=== PATIENT | male | born 1955 | race Caucasian/White ===

== ENCOUNTER 2019-04-01 22:00 | IRF | payer OTHER, SELFPAY ==
--- NOTE | ~2019-04-01 | XR_ITS ---
EXAMINATION: XR chest PICC line DATE: 04/02/2019 00:48 INDICATION: Central line placement. TECHNIQUE: A single frontal view of the chest was obtained. COMPARISON: None. FINDINGS: Right lateral costophrenic angle is excluded. There is mild atelectasis in left lower lung zone. No pleural effusion or pneumothorax. The heart size is normal. A right upper extremity peripher ally inserted central venous catheter (PICC) is seen with tip in the right atrium. Radiopaque densiti es overlie left upper quadrant that may be foreign bodies. IMPRESSION: 1. PICC tip in right atrium. 2. Mild atelectasis in left lower lung zone. Reviewed, dictated and finalized at location A. GAGE COORDINATOR
[2019-04-01 22:00] VITALS: BP 137/58; PULSE 64; RESP 20; TEMP 36.4; O2SAT 98
--- NOTE | 2019-04-01 22:16 | ADMGEN ---
This patient, Ritesh Dee, was admitted to [facility] Room 220-02. Patient/family oriented to hospital policies and general routines including ID bracelet, bed and alarms, visiting hours, pain management, procedures, bathroom and other care routines, personal items, smoking policy, room service/diet, and visiting hours. Valuables list has been completed. Information on how to activate the Rapid Response Team has been discussed. Patient/Family are encouraged to report perceived risks to care and to ask questions if they do not understand what they are told or what they should do.
[2019-04-01 22:41] VITALS: BMI 45.5
[2019-04-02] MEDS: ENOXAPARIN 40 MG/0.4 ML SYRINGE SUB-Q ×3 (00:37→20:22)
[2019-04-02 06:00] VITALS: BP 142/60; PULSE 67; RESP 20; TEMP 36.6; O2SAT 99
[2019-04-02 06:11] LABS: Basophils Absolute Auto 0.1 K/mm3 (0.0-0.1); Basophils Percent Auto 0.8 % (0.2-1.2); Eosinophils Absolute Auto 0.2 K/mm3 (0-0.3); Hematocrit 28.7 % (42.0-52.0); Hemoglobin 8.8 g/dL (14.0-18.0); Immature Granulocyte Absolute 0.07 K/mm3 (0.00-0.031); Immature Granulocyte Percent A 0.7 % (0-0.5); Lymphocytes Absolute Auto 2.22 K/mm3 (0.9-3.2); Lymphocytes Percent Auto 23.3 % (18.3-44.2); Mean Corpuscular HGB Conc 30.7 g/dl (32-36); Mean Corpuscular Hemoglobin 26.6 pg (26-34); Mean Corpuscular Volume 86.7 fl (80-100); Monocytes Absolute Auto 1.1 K/mm3 (0.1-0.6); Monocytes Percent Auto 11.3 % (2.6-8.5); Neutrophils Absolute Auto 5.9 K/mm3 (1.3-6.7); Neutrophils Percent Auto 61.9 % (45.5-73.1); Platelet Count Result 359 k/mm3 (150-375); Red Blood Count 3.31 M/mm3 (4.6-6.20); White Blood Count 9.5 K/mm3 (4.5-10.0)
[2019-04-02 06:27] LABS: Blood Urea Nitrogen 16 mg/dL (9-20); Calcium 8.4 mg/dL (8.4-10.2); Carbon Dioxide 26 mmol/L (22-30); Chloride 100 mmol/L (98-107); Estimated CRCL calculation 106 ml/min; Estimated Glomerular Filt Rate > 60; Glucose 86 mg/dL (75-110); Potassium 4.4 mmol/L (3.4-5.0); Sodium 136 mmol/L (137-145)
[2019-04-02 08:00] VITALS: PULSE 67; RESP 20; O2SAT 99
--- NOTE | 2019-04-02 09:30 | WPDREHABHP ---
H&P: HPI History of Present Illness Chief complaint: left foot non healing diabetic ulceration Narrative: Ritesh Dee is a 64 year old maleHISTORY OF PRESENT ILLNESS: The patient's primary rehab impairment category is 58-yqpargjztg-xnley extremity The etiologic diagnosis is diabetic left nonhealing foot ulceration followed by ekhxz-uby-mudn amputation I saw this patient [id number] on April 02, 2019 at 9:30 a.m. The patient is a 64-year-old right-handed white male with a past medical history of coronary artery disease status post 3 stents, type 2 diabetes mellitus, obstructive sleep apnea, prior stroke with some residual weakness of the dexterity dexterity of the right hand, hyperlipidemia, morbid obesity, and hypertension who presented to [facility] on March 16, 2019 with complaints of worsening infection in an ulcer on his left foot. The wound has been present for about a month and started out as a small cut. The wound was cultured and debrided in the Wound Care office but it continued to get worse. He was admitted on March 16, 2019 with sepsis and was started on vancomycin and cefepime and Flagyl. The culture grew Enterococcus, Enterobacter clock a and E coli and his antibiotic regimen was changed to clindamycin ampicillin and cefepime then sensitivities returned. to the patient to the OR on March 18, 2019 for further debridement and wound VAC placement. His white count started to trend down but he continued to have pain and significant drainage from the wound. He was then transferred to [facility] in [facility] on March 24, 2019 for infectious disease and vascular consult patient's. ALFONSO were abnormal on the left and the patient was scheduled for left [id number] amputation in March 26, 2019 with vascular surgery. Infectious disease recommended continue treatment with IV Rocephin for 3 weeks last day would be April 22, 2019. patient has a PICC line in place at the right upper extremity. This hospitalization has been significant for acute postoperative pain, edema and acute kidney injury. His postoperative pain is being managed with oral medications now edema is chronic and is being managed by avoiding excess IV fluids and diuresis, acute kidney injury is resolving with the current creatinine at baseline of 1.3 Therapy was initiated at the acute care facility and the patient transferred to us from [facility] on April 01, 2019 FALLS OR SURGERIES: The patient has had major surgeries in the 100 days prior to admission. They had no falls in the past year. They had no falls with injury in the past year. PAST MEDICAL HISTORY: benign essential hypertension, benign prostatic hypertrophy, coronary artery disease status post stenting, cataracts, cellulitis of the left lower extremity, cerebral infarction in 2010 with residual right hand weakness chronic calf ulcer chronic venous insufficiency diabetes mellitus right arm hemiparesis hyperlipidemia obstructive sleep apnea osteoarthritis osteoarthrosis, peripheral nerve disease, right-sided muscle weakness. PAST SURGICAL HISTORY: Cardiac stents, bilateral cataract extraction, insulin infusion pump insertion, hernia repair, knee surgery, rigid nasal fiberoptic endoscopy, stress test, right total hip arthroplasty Prieb add SOCIAL HISTORY: the patient lives with a roommate in a 2 level home with 4 steps to enter. He is able to live on the [place] level with the bedroom/ bathroom available there. He was completely independent with ADLs and IADLs less function transfers ambulation and driving prior to this. He did not use an assistive device. He was able to ambulate short community distances and worked as a chef de cuisine. He reported no falls prior and had major surgery this hospitalization of course. FAMILY HISTORY: Father had lung cancer, brain cancer. Maternal grandmother with diabetes and stroke. Maternal grandfather for t
[2019-04-02 10:05] VITALS: TEMP 36.6
[2019-04-02] MEDS: metFORMIN HCL 500 MG TABLET 1000 MG PO (10:15)
[2019-04-02] MEDS: DOCUSATE SODIUM 100 MG CAPSULE PO ×2 (10:15→17:47)
[2019-04-02] MEDS: FLUTICASONE PROPIONATE 0.05% NA SPR 16 GM BTL (*BKC) 2 SPRAY NASAL (10:16)
[2019-04-02] MEDS: CLOPIDOGREL BISULFATE 75 MG TABLET PO (10:16)
[2019-04-02] MEDS: lisinopriL 10 MG TABLET PO (10:16)
[2019-04-02] MEDS: PANTOPRAZOLE 40 MG TABLET BY MOUTH (10:16)
[2019-04-02] MEDS: GABAPENTIN 100 MG CAPSULE PO ×3 (10:16→17:47)
[2019-04-02] MEDS: PANTOPRAZOLE SOD SESQUIHYDRATE 20 MG TAB PO (10:17)
[2019-04-02] MEDS: NAPROXEN 500 MG TABLET BY MOUTH (10:17)
[2019-04-02] MEDS: ACIDOPHILUS/BULGARICUS CHEWABLE TABLET 1 TABLET PO (10:17)
[2019-04-02] MEDS: EUCERIN CREAM 120 GM JAR 1 APPLIC TOPICAL (12:54)
[2019-04-02 13:58] VITALS: TEMP 36.6
[2019-04-02 14:57] VITALS: BMI 45.5
[2019-04-02 15:20] VITALS: BP 125/47; PULSE 76; RESP 16; TEMP 36; O2SAT 99
--- NOTE | 2019-04-02 15:58 | PCNSR ---
On 04/02/19, the student, Dana Rosenbaum, provided care and completed [facility] documentation on this patient. I have reviewed the student's documentation and agree with the findings.
--- NOTE | 2019-04-02 16:49 | RPD ---
INDIVIDUALIZED PLAN OF CARE FOR Ritesh Dee Brief Synthesis of Pre-Admission Screen, Post-Admission Evaluation and Therapy Evaluations: The patient presents to rehab with diabetic non-healing foot ulceration. Comorbidities include Status post left below the knee amputation, peripheral vascular disease, hypertension, hyperlipidemia, benign prostatic hyperplasia, lower extremity edema, coronary artery disease, diabetes mellitus, gastroesophageal reflux disease, obstructive sleep apnea, osteoathrosis, peripheral nerve disease, right-sided muscle weakness, sepsis, acute on chronic kidney disease, chronic rhinitis, morbid obesity. The patient requires physician services for medical oversight, management of post-op complications in the setting of present comorbidities, management of diabetes mellitus, hypertension, kidney disease, and pain management. Post-op complications have included lower extremity edema, postoperative pain, acute kidney injury, and infectious process. The patient requires nursing services for anticoagulation therapy, diabetes training, DVT prophylactics, IV administration, infection protection, medication management and education, pressure relief, and wound care. Deficits include:ADLs, Balance, Endurance, Mobility, Pain Management, ROM, Safety, Strength,Transfers Licensed Final Expense Agents/Case Management for: Discharge Planning and Patient/Family Counseling Physical Therapy: 5 days per week for 90 minutes. Treatments may include: Therapeutic Exercise, Gait Training, Neuromuscular Re-education, Transfer Training, Community Reintegration, Bed Mobility, Patient/Family Education, Wheelchair Mobility Group Therapy/Concurrent Therapy Rationales: -Improve attention span during functional activities in a distracted environment. -Enhance problem solving and/or adequate judgment skills during functional activities in a distracted environment. -Promote increased safety awareness in a distracted environment to reduce fall risk with functional tasks, transfers, and ambulation to allow a more safe, self-sufficient return to the home environment. -Improve dynamic balance skills to promote safety and independence with functional activities in a distracted environment for maximum gain. Occupational Therapy: 5 days per week for 90 minutes. Treatments may include: Therapeutic Exercise, Therapeutic Activity, Cognitive Training, Self-Care Transfer Training, Community Reintegration, Home Management, Patient/Family Education, Wheelchair Mobility Training, Energy Conservation Training Group Therapy/Concurrent Therapy Rationales: -Allow therapist to observe and teach generalization and carry-over of skills learned in individual therapy. -Enhance problem solving and sequencing skills during therapeutic activities in a distracted environment. -Promote increased safety awareness in a realistic setting to reduce fall risk with functional tasks due to visual and verbal distractions. -Increase functional level with ADLs, ADL transfers and use of adaptive equipment through therapeutic activities with others while promoting safety to allow a more safe, self-sufficient return home. Medical Prognosis: Good Anticipated Length of Stay: 10 days Rehab Goals: Eating Goal: 06-Independent Oral Hygiene Goal: 06-Independent Toileting Hygiene Goal: 06-Independent Shower/Bathe Self Goal: 06-Independent Upper Body Dressing Goal: 06-Independent Lower Body Dressing Goal: 06-Independent Putting On/Taking Off Footwear Goal: 06-Independent Rolling Left and Right Goal: 06-Independent Sit to Lying Goal: 06-Independent Lying to Sitting on Side of Bed Goal: 06-Independent Sit to Stand Goal: 06-Independent Chair/Guh-pk-Yzwff Transfer Goal: 06-Independent Toilet Transfer Goal: 06-Independent Car Transfer Goal: 05-Setup or Clean Up Assistance Walk 10' Goal: 03-Partial/Moderate Assistance Walk 50' with Two Turns Goal: 09-Not Applicable Walk 150' Goal: 09-Not Applicable Walk 10' on Uneven Surface
[2019-04-02 17:21] LABS: Glucose Point of Care 49 (65-105)
[2019-04-02 22:00] VITALS: BP 119/53; PULSE 69; RESP 20; TEMP 36.6; O2SAT 97
[2019-04-03 06:00] VITALS: BP 138/58; PULSE 64; RESP 18; TEMP 36.5; O2SAT 98
[2019-04-03] MEDS: ENOXAPARIN 40 MG/0.4 ML SYRINGE SUB-Q ×2 (09:34→20:11)
[2019-04-03] MEDS: GABAPENTIN 100 MG CAPSULE PO ×3 (09:34→16:48)
[2019-04-03] MEDS: metFORMIN HCL 500 MG TABLET 1000 MG PO (09:34)
[2019-04-03] MEDS: CLOPIDOGREL BISULFATE 75 MG TABLET PO (09:35)
[2019-04-03] MEDS: ACIDOPHILUS/BULGARICUS CHEWABLE TABLET 1 TABLET PO (09:35)
[2019-04-03] MEDS: FLUTICASONE PROPIONATE 0.05% NA SPR 16 GM BTL (*BKC) 2 SPRAY NASAL (09:35)
[2019-04-03] MEDS: lisinopriL 10 MG TABLET PO (09:35)
[2019-04-03] MEDS: PANTOPRAZOLE SOD SESQUIHYDRATE 20 MG TAB PO (09:35)
[2019-04-03] MEDS: PANTOPRAZOLE 40 MG TABLET BY MOUTH (09:35)
[2019-04-03] MEDS: NAPROXEN 500 MG TABLET BY MOUTH (09:35)
[2019-04-03] MEDS: DOCUSATE SODIUM 100 MG CAPSULE PO ×2 (09:35→16:48)
[2019-04-03] MEDS: EUCERIN CREAM 120 GM JAR 1 APPLIC TOPICAL (09:40)
[2019-04-03 11:52] LABS: Glucose Point of Care 172 (65-105)
[2019-04-03 14:00] VITALS: BP 129/56; PULSE 74; RESP 20; TEMP 36.3; O2SAT 99
[2019-04-03 17:25] LABS: Glucose Point of Care 47 (65-105)
[2019-04-03 22:00] VITALS: BP 157/61; PULSE 72; RESP 18; TEMP 36.2; O2SAT 100
[2019-04-04 06:00] VITALS: BP 152/62; PULSE 65; RESP 18; TEMP 36.2; O2SAT 98
[2019-04-04 08:30] VITALS: BP 117/51; PULSE 71
[2019-04-04] MEDS: GABAPENTIN 100 MG CAPSULE PO ×3 (08:45→17:08)
[2019-04-04] MEDS: CLOPIDOGREL BISULFATE 75 MG TABLET PO (08:45)
[2019-04-04] MEDS: PANTOPRAZOLE 40 MG TABLET BY MOUTH (08:45)
[2019-04-04] MEDS: ACIDOPHILUS/BULGARICUS CHEWABLE TABLET 1 TABLET PO (08:45)
[2019-04-04] MEDS: metFORMIN HCL 500 MG TABLET 1000 MG PO (08:45)
[2019-04-04] MEDS: NAPROXEN 500 MG TABLET BY MOUTH (08:46)
[2019-04-04] MEDS: lisinopriL 10 MG TABLET PO (08:46)
[2019-04-04] MEDS: PANTOPRAZOLE SOD SESQUIHYDRATE 20 MG TAB PO (08:46)
[2019-04-04] MEDS: DOCUSATE SODIUM 100 MG CAPSULE PO ×2 (08:46→17:08)
[2019-04-04] MEDS: ENOXAPARIN 40 MG/0.4 ML SYRINGE SUB-Q ×2 (08:49→20:22)
--- NOTE | 2019-04-04 13:54 | WPDNEURORHBP ---
Subjective Date/time seen: 04/04/19 13:54 Interval history: this patient is here after having had a left BKA the to diabetic neuropathy peripheral vascular disease and complaining of phantom pain in the leg he is receiving IV antibiotics He denies any headache chest pain shortness of breath Review of Systems Constitutional: Constitutional: Reports no additional constitutional complaints Eyes: Eyes: Reports no additional eye complaints ENT: Reports system reviewed and no additional complaints, except as documented Cardiovascular: Cardiovascular: Reports no additional cardiovascular complaints Respiratory: Respiratory: Reports no additional respiratory complaints Gastrointestinal: Gastrointestinal: Reports no additional gastrointestinal complaints Genitourinary: Genitourinary: Reports no additional male genitourinary complaints Musculoskeletal: Musculoskeletal: Reports no additional musculoskeletal complaints Integumentary/Breasts: Skin/Breast: Reports system reviewed and no additional complaints, except as docu Neurologic: Reports system reviewed and no additional complaints, except as documented Psychiatric: Psychiatric: Reports no additional psychiatric complaints Functional Status Transfers Ability Ability to Transfer In/Out of Chair: Maximum Assistance X 1 Exam Const: General: no acute distress and uncomfortable Other: phantom pain is bothering him HENMT: General nose exam: Normal nares present Mouth: Yes moist mucous membranes Eyes: General: appearance normal, both eyes and all related structures Neck: Neck: supple and no JVD Resp: Effort & Inspection: normal respiratory effort Auscultation: clear to auscultation bilaterally Cardio: Rate: regular rate Rhythm: regular rhythm GI: GI Palp: Yes Soft to palpation Auscultation: normal bowel sounds Skin: General skin exam: normal color and no rashes or lesions noted Neuro: Other: patient has had generalized weakness of both upper lower extremities along with the evidence of peripheral neuropathy and peripheral vascular disease Extrem: Other: this is a little drainage at the site of the amputation and dark skin edges where the sutures are we need to watch it carefully for any wound dehiscence or any sign of infection which he does not have at this time Psych: Mental Status: mental status grossly normal Objective Data Vital Signs Vital Signs: Vital Signs - 24 hr 04/03/19 14:00 04/03/19 22:00 04/04/19 06:00 Temperature 36.3 C L 36.2 C L 36.2 C L Pulse Rate 74 72 65 Respiratory Rate 20 18 18 Blood Pressure 129/56 L 157/61 H 152/62 H Pulse Oximetry 99 100 98 04/04/19 08:30 Temperature Pulse Rate 71 Respiratory Rate Blood Pressure 117/51 L Pulse Oximetry Intake/Output Intake/Output: Intake & Output 04/01/19 04/02/19 04/03/19 04/04/19 23:59 23:59 23:59 23:59 Intake Total 240 1250 770 Balance 240 1250 770 Meds/Results Medications: Active Medications Generic Name Dose Route Start Last Admin Trade Name Freq PRN Reason Stop Dose Admin Albuterol 2.5 mg 04/01/19 23:45 Albuterol Sulf Neb 2.5mg/0.5ml INHALATION Q4HRT PRN Shortness Of Breath Alteplase, Recombinant 2 mg 04/04/19 13:46 Cathflo Activase IV PUSH ONCE PRN Line Occlusion Alteplase, Recombinant 2 mg 04/04/19 13:49 Cathflo Activase IV PUSH ONCE PRN Line Occlusion Benzonatate 100 mg 04/01/19 23:13 Tessalon Perles PO TID PRN Cough Clopidogrel Bisulfate 75 mg 04/02/19 09:00 04/04/19 08:45 Plavix PO 75 mg DAILY JOSE A Administration Diphenhydramine HCl 25 mg 04/01/19 23:13 Benadryl Cap PO HS PRN Insomnia Docusate Sodium 100 mg 04/02/19 09:00 04/04/19 08:46 Colace Capsule PO 100 mg BID JOSE A Administration Enoxaparin Sodium 40 mg 04/01/19 23:55 04/04/19 08:49 Lovenox SUB-Q 40 mg Q12HR JOSE A Administration Fluticasone Propionate 2 spray 04/02/19 09:0
[2019-04-04 14:00] VITALS: BP 141/59; PULSE 73; RESP 17; TEMP 36; O2SAT 98
[2019-04-04] MEDS: ALTEPLASE 2 MG VIAL (CATHFLO) IV PUSH ×2 (15:23→17:09)
[2019-04-04 21:10] VITALS: BP 129/58; PULSE 74; RESP 20; TEMP 36.4; O2SAT 99
[2019-04-05 06:00] VITALS: BP 129/51; PULSE 62; RESP 20; TEMP 36.2; O2SAT 100
[2019-04-05 06:42] VITALS: BP 155/75; PULSE 63; RESP 16; TEMP 36.6; O2SAT 97
[2019-04-05] MEDS: metFORMIN HCL 500 MG TABLET 1000 MG PO (09:53)
[2019-04-05] MEDS: CLOPIDOGREL BISULFATE 75 MG TABLET PO (09:53)
[2019-04-05] MEDS: ACIDOPHILUS/BULGARICUS CHEWABLE TABLET 1 TABLET PO (09:53)
[2019-04-05] MEDS: ENOXAPARIN 40 MG/0.4 ML SYRINGE SUB-Q ×2 (09:54→20:49)
[2019-04-05] MEDS: lisinopriL 10 MG TABLET PO (09:54)
[2019-04-05] MEDS: FLUTICASONE PROPIONATE 0.05% NA SPR 16 GM BTL (*BKC) 2 SPRAY NASAL (09:54)
[2019-04-05] MEDS: GABAPENTIN 100 MG CAPSULE PO ×3 (09:54→18:14)
[2019-04-05] MEDS: EUCERIN CREAM 120 GM JAR 1 APPLIC TOPICAL (09:54)
[2019-04-05] MEDS: DOCUSATE SODIUM 100 MG CAPSULE PO ×2 (09:54→18:14)
[2019-04-05] MEDS: PANTOPRAZOLE SOD SESQUIHYDRATE 20 MG TAB PO (09:55)
[2019-04-05] MEDS: PANTOPRAZOLE 40 MG TABLET BY MOUTH (09:55)
[2019-04-05] MEDS: NAPROXEN 500 MG TABLET BY MOUTH (09:55)
[2019-04-05 12:27] LABS: Glucose Point of Care 94 (65-105)
--- NOTE | 2019-04-05 12:48 | PC.NURSE ---
Patient has been monitoring own blood sugars with his Dexcom device and giving coverage as needed via his insulin pump. Made a Occupational Therapy Manager consult and seen by Dr. Matias this morning, pt. will monitor blood glucose today and plans to call his primary care physician tomorrow 04/06/19 if any changes needed.
[2019-04-05 14:00] VITALS: BP 114/60; PULSE 72; RESP 21; TEMP 36.8; O2SAT 99
[2019-04-05 15:00] VITALS: BMI 45.5
--- NOTE | 2019-04-05 15:53 | PCPTNOTE ---
Ritesh Dee was evaluated for a slide board on 04/05/2019 by this physical therapist historian research assistant The slide board will resolve patient's mobility limitations and will be used for ADL's within the home. The patient can safely use the slide board. ?The slide board will resolve the patient?s mobility deficits, including decreased balance and strength in right lower extremity.
[2019-04-05 17:29] LABS: Glucose Point of Care 144 (65-105)
[2019-04-05 21:30] LABS: Glucose Point of Care 130 (65-105)
[2019-04-05 22:00] VITALS: BP 131/61; PULSE 75; RESP 19; TEMP 36.3; O2SAT 99
[2019-04-06 05:35] LABS: Hemoglobin A1C 6.3 % (<5.7)
[2019-04-06 06:00] VITALS: BP 120/51; PULSE 63; RESP 19; TEMP 36; O2SAT 100
[2019-04-06 07:00] LABS: Glucose Point of Care 138 (65-105)
[2019-04-06] MEDS: CLOPIDOGREL BISULFATE 75 MG TABLET PO (10:19)
[2019-04-06] MEDS: ENOXAPARIN 40 MG/0.4 ML SYRINGE SUB-Q ×2 (10:19→20:59)
[2019-04-06] MEDS: ACIDOPHILUS/BULGARICUS CHEWABLE TABLET 1 TABLET PO (10:19)
[2019-04-06] MEDS: DOCUSATE SODIUM 100 MG CAPSULE PO ×2 (10:19→17:41)
[2019-04-06] MEDS: metFORMIN HCL 500 MG TABLET 1000 MG PO (10:19)
[2019-04-06] MEDS: EUCERIN CREAM 120 GM JAR 1 APPLIC TOPICAL (10:20)
[2019-04-06] MEDS: GABAPENTIN 100 MG CAPSULE PO ×3 (10:20→17:41)
[2019-04-06] MEDS: lisinopriL 10 MG TABLET PO (10:20)
[2019-04-06] MEDS: PANTOPRAZOLE 40 MG TABLET BY MOUTH (10:21)
[2019-04-06] MEDS: NAPROXEN 500 MG TABLET BY MOUTH (10:21)
[2019-04-06] MEDS: PANTOPRAZOLE SOD SESQUIHYDRATE 20 MG TAB PO (10:21)
[2019-04-06 12:07] LABS: Glucose Point of Care 142 (65-105)
--- NOTE | 2019-04-06 12:14 | WPDNEURORHBP ---
Subjective Date/time seen: 04/06/19 12:14 Interval history: the patient is here with the left BKA following and nonhealing diabetic foot wound she is present for the team conference and the sister crow was on the telephone patient has fluctuating blood pressure and the insulin pump has been adjusted with the collaboration of his local area network systems adminstrator patient is suppose to continue antibiotic till April 22, 2019 she denies any headache nausea vomiting chest pain or shortness of breath his wound seem to be clean and healthy and he is moving forward in the therapy Review of Systems Constitutional: Constitutional: Reports no additional constitutional complaints Eyes: Eyes: Reports no additional eye complaints ENT: Reports system reviewed and no additional complaints, except as documented Cardiovascular: Cardiovascular: Reports no additional cardiovascular complaints Respiratory: Respiratory: Reports no additional respiratory complaints Gastrointestinal: Gastrointestinal: Reports no additional gastrointestinal complaints Genitourinary: Genitourinary: Reports no additional male genitourinary complaints Musculoskeletal: Musculoskeletal: Reports no additional musculoskeletal complaints Integumentary/Breasts: Skin/Breast: Reports system reviewed and no additional complaints, except as docu Neurologic: Reports system reviewed and no additional complaints, except as documented Psychiatric: Psychiatric: Reports no additional psychiatric complaints Functional Status Transfers Ability Ability to Transfer In/Out of Chair: Maximum Assistance X 1 Exam Const: General: comfortable and no acute distress HENMT: General nose exam: Normal nares present Mouth: Yes moist mucous membranes Eyes: General: appearance normal, both eyes and all related structures Neck: Neck: supple and no JVD Resp: Effort & Inspection: normal respiratory effort Auscultation: clear to auscultation bilaterally Cardio: Rate: regular rate Rhythm: regular rhythm GI: GI Palp: Yes Soft to palpation Auscultation: normal bowel sounds Skin: General skin exam: normal color and no rashes or lesions noted Other: the stump is clean and healthy our therapist will be in touch with the surgeon to get an order for stump assembler latches and springs and that will protect the stump better than the bandage we have right now Neuro: Other: patient has remained awake alert will oriented time place and person the weakness and strength is improving his neuropathy a neuro vascular disease remains stable clearly there is improvement rather than regression Extrem: Other: left BKA Psych: Mental Status: mental status grossly normal Objective Data Vital Signs Vital Signs: Vital Signs - 24 hr 04/05/19 14:00 04/05/19 22:00 04/06/19 06:00 Temperature 36.8 C 36.3 C L 36.0 C L Pulse Rate 72 75 63 Respiratory Rate 21 H 19 19 Blood Pressure 114/60 131/61 120/51 L Pulse Oximetry 99 99 100 Intake/Output Intake/Output: Intake & Output 04/03/19 04/04/19 04/05/19 04/06/19 23:59 23:59 23:59 23:59 Intake Total 1250 1730 1050 480 Balance 1250 1730 1050 480 Meds/Results Medications: Active Medications Generic Name Dose Route Start Last Admin Trade Name Freq PRN Reason Stop Dose Admin Albuterol 2.5 mg 04/01/19 23:45 Albuterol Sulf Neb 2.5mg/0.5ml INHALATION Q4HRT PRN Shortness Of Breath Alteplase, Recombinant 2 mg 04/04/19 13:46 04/04/19 15:23 Cathflo Activase IV PUSH 2 mg ONCE PRN Administration Line Occlusion Alteplase, Recombinant 2 mg 04/04/19 13:49 04/04/19 17:09 Cathflo Activase IV PUSH 2 mg ONCE PRN Administration Line Occlusion Benzonatate 100 mg 04/01/19 23:13 Tessalon Perles PO TID PRN Cough Bisacodyl 10 mg 04/04/19 14:14 Dulcolax Suppository RECTAL DAILY PRN Constipation Bisacodyl 10 mg 04/04/19 14:46 Dulcolax Tab PO DAILY PRN Constipation Clopidogrel Bisulfate 75 mg
--- NOTE | 2019-04-06 12:54 | PCDIET ---
Nutrition Follow-Up Complete: Inconsistent carbohydrate intake related to T2DM dx as evidenced by patient's home meal reports (eating 2 meals and an occassional snack). Patient will consume greater than 75% of all meals and drink Narayan 1x/day Goal:Goal met. Pt consuming 100% of all meals. Nutrition recommendation: Continuation of DM CHO consistent diet to provide adequate nutrition and establish carb consistency through the day. As pt is having difficulty keeping blood glucose levels from dropping, recommend allowance for an extra CHO containing item be added to dinner tray so that it can be eaten later, if glucose level keeps dropping at night. Last recorded weight is 156.4 kg. Bowel Motility:+BM 03/24 Labs Reviewed: POC capillary GLU(144) Meds Noted:Colace, Lovenox, metformin, protonix Additional Notes: Discussed with pt his fluctuating glucose levels. Said that last night before bed his glucose level was about 130, and early this morning, level read 45 but he did not exhibit any of the hypoglycemic symptoms he normally has. He states the nurse brought in a sandwich and he had 3 juices, some pizza, and a cookie he had in his room which helped increase his levels. Yesterday pt called doctor and changed dosage of insulin pump, which he hopes will stabilize levels. Saw the Mixing And Dispensing Supervisor yesterday. Educated pt previously regarding CHO consistency and tried to provide additional education today regarding CHO consistency and portion sizes. Will monitor labs and intake. Will follow up in 7 days.
[2019-04-06 14:00] VITALS: BP 145/63; PULSE 75; RESP 20; TEMP 37; O2SAT 98
--- NOTE | 2019-04-06 14:21 | PCCCNOTE ---
On 04/06/19, the student, [Roger Bennett ], provided care and completed [facility] documentation on this patient. I have reviewed the student's documentation and agree with the findings.
--- NOTE | 2019-04-06 14:26 | PCNSR ---
On 04/06/19, the student, Dana Rosenbaum, provided care and completed [facility] documentation on this patient. I have reviewed the student's documentation and agree with the findings.
[2019-04-06 17:14] LABS: Glucose Point of Care 75 (65-105)
[2019-04-06] MEDS: BISACODYL 5 MG TABLET EC 10 MG PO (21:10)
[2019-04-06 21:51] LABS: Glucose Point of Care 140 (65-105)
[2019-04-06 22:00] VITALS: BP 131/57; PULSE 70; RESP 20; TEMP 36.1; O2SAT 100
[2019-04-07 06:00] VITALS: BP 129/55; PULSE 63; RESP 20; TEMP 36.3; O2SAT 99
[2019-04-07 08:00] VITALS: PULSE 63; RESP 20; O2SAT 99
[2019-04-07 08:11] LABS: Glucose Point of Care 76 (65-105)
[2019-04-07] MEDS: CLOPIDOGREL BISULFATE 75 MG TABLET PO (09:43)
[2019-04-07] MEDS: PANTOPRAZOLE 40 MG TABLET BY MOUTH (09:43)
[2019-04-07] MEDS: ENOXAPARIN 40 MG/0.4 ML SYRINGE SUB-Q ×2 (09:44→20:31)
[2019-04-07] MEDS: GABAPENTIN 100 MG CAPSULE PO ×3 (09:44→17:32)
[2019-04-07] MEDS: metFORMIN HCL 500 MG TABLET 1000 MG PO (09:44)
[2019-04-07] MEDS: DOCUSATE SODIUM 100 MG CAPSULE PO ×2 (09:44→17:32)
[2019-04-07] MEDS: lisinopriL 10 MG TABLET PO (09:44)
[2019-04-07] MEDS: ACIDOPHILUS/BULGARICUS CHEWABLE TABLET 1 TABLET PO (09:44)
[2019-04-07] MEDS: NAPROXEN 500 MG TABLET BY MOUTH (09:45)
[2019-04-07] MEDS: PANTOPRAZOLE SOD SESQUIHYDRATE 20 MG TAB PO (09:45)
[2019-04-07] MEDS: EUCERIN CREAM 120 GM JAR 1 APPLIC TOPICAL (09:45)
--- NOTE | 2019-04-07 10:46 | WPDNEURORHBP ---
Subjective Date/time seen: 04/07/19 10:46 Interval history: in his spite of the some hypoglycemic events patient is doing fairly well and no change in the mental status and no change overall in his neurological examination the family living educator was with him and walked with the insulin pump with some instructions next Patient otherwise is asymptomatic his phantom pain is fairly decently controlled and manageable no headache chest pain shortness of redness nausea vomiting Review of Systems Constitutional: Constitutional: Reports no additional constitutional complaints Eyes: Eyes: Reports no additional eye complaints ENT: Reports system reviewed and no additional complaints, except as documented Cardiovascular: Cardiovascular: Reports no additional cardiovascular complaints Respiratory: Respiratory: Reports no additional respiratory complaints Gastrointestinal: Gastrointestinal: Reports no additional gastrointestinal complaints Genitourinary: Genitourinary: Reports no additional male genitourinary complaints Musculoskeletal: Musculoskeletal: Reports no additional musculoskeletal complaints Integumentary/Breasts: Skin/Breast: Reports system reviewed and no additional complaints, except as docu Neurologic: Reports system reviewed and no additional complaints, except as documented Psychiatric: Psychiatric: Reports no additional psychiatric complaints Functional Status Transfers Ability Ability to Transfer In/Out of Chair: Maximum Assistance X 1 Exam Const: General: comfortable and no acute distress HENMT: General nose exam: Normal nares present Mouth: Yes moist mucous membranes Eyes: General: appearance normal, both eyes and all related structures Other: evidence of diabetic retinopathy stable Neck: Neck: supple and no JVD Resp: Effort & Inspection: normal respiratory effort Auscultation: clear to auscultation bilaterally Cardio: Rate: regular rate Rhythm: regular rhythm GI: GI Palp: Yes Soft to palpation Auscultation: normal bowel sounds Skin: General skin exam: normal color and no rashes or lesions noted Neuro: Other: patient remains awake and alert well oriented time place and person he does have evidence of diabetic peripheral neuropathy and also peripheral vascular disease and of course has left BKA which is stable patient is making progress overall in the rehab Extrem: Other: left BKA Psych: Mental Status: mental status grossly normal Objective Data Vital Signs Vital Signs: Vital Signs - 24 hr 04/06/19 14:00 04/06/19 22:00 04/07/19 06:00 Temperature 37.0 C 36.1 C L 36.3 C L Pulse Rate 75 70 63 Respiratory Rate 20 20 20 Blood Pressure 145/63 H 131/57 L 129/55 L Pulse Oximetry 98 100 99 Intake/Output Intake/Output: Intake & Output 04/04/19 04/05/19 04/06/19 04/07/19 23:59 23:59 23:59 23:59 Intake Total 1730 1100 1250 360 Balance 1730 1100 1250 360 Meds/Results Medications: Active Medications Generic Name Dose Route Start Last Admin Trade Name Freq PRN Reason Stop Dose Admin Albuterol 2.5 mg 04/01/19 23:45 Albuterol Sulf Neb 2.5mg/0.5ml INHALATION Q4HRT PRN Shortness Of Breath Alteplase, Recombinant 2 mg 04/04/19 13:46 04/04/19 15:23 Cathflo Activase IV PUSH 2 mg ONCE PRN Administration Line Occlusion Alteplase, Recombinant 2 mg 04/04/19 13:49 04/04/19 17:09 Cathflo Activase IV PUSH 2 mg ONCE PRN Administration Line Occlusion Benzonatate 100 mg 04/01/19 23:13 Tessalon Perles PO TID PRN Cough Bisacodyl 10 mg 04/04/19 14:14 Dulcolax Suppository RECTAL DAILY PRN Constipation Bisacodyl 10 mg 04/04/19 14:46 04/06/19 21:10 Dulcolax Tab PO 10 mg DAILY PRN Administration Constipation Clopidogrel Bisulfate 75 mg 04/02/19 09:00 04/07/19 09:43 Plavix PO 75 mg DAILY JOSE A Administration Diphenhydramine HCl 25 mg 04/01/19 23:13 Benadryl Cap PO HS PRN In
[2019-04-07 12:14] LABS: Glucose Point of Care 91 (65-105)
[2019-04-07 14:00] VITALS: BP 129/61; PULSE 89; RESP 22; TEMP 35.9; O2SAT 99
[2019-04-07 17:11] LABS: Glucose Point of Care 115 (65-105)
[2019-04-07 21:56] VITALS: BP 133/64; PULSE 72; RESP 20; TEMP 36.1; O2SAT 99
[2019-04-07 22:34] LABS: Glucose Point of Care 156 (65-105)
[2019-04-08 06:00] VITALS: BP 102/62; PULSE 63; RESP 20; TEMP 36.4; O2SAT 99
[2019-04-08 07:14] LABS: Glucose Point of Care 67 (65-105)
[2019-04-08] MEDS: ENOXAPARIN 40 MG/0.4 ML SYRINGE SUB-Q ×2 (08:49→20:40)
[2019-04-08] MEDS: metFORMIN HCL 500 MG TABLET 1000 MG PO (08:50)
[2019-04-08] MEDS: DOCUSATE SODIUM 100 MG CAPSULE PO ×2 (08:51→17:40)
[2019-04-08] MEDS: GABAPENTIN 100 MG CAPSULE PO ×3 (08:51→17:40)
[2019-04-08] MEDS: ACIDOPHILUS/BULGARICUS CHEWABLE TABLET 1 TABLET PO (08:51)
[2019-04-08] MEDS: CLOPIDOGREL BISULFATE 75 MG TABLET PO (08:51)
[2019-04-08] MEDS: lisinopriL 10 MG TABLET PO (08:52)
[2019-04-08] MEDS: PANTOPRAZOLE 40 MG TABLET BY MOUTH (08:53)
[2019-04-08] MEDS: NAPROXEN 500 MG TABLET BY MOUTH (08:53)
[2019-04-08] MEDS: PANTOPRAZOLE SOD SESQUIHYDRATE 20 MG TAB PO (08:54)
[2019-04-08 09:31] LABS: Glucose Point of Care 111 (65-105)
[2019-04-08] MEDS: EUCERIN CREAM 120 GM JAR 1 APPLIC TOPICAL (09:50)
[2019-04-08 12:13] LABS: Glucose Point of Care 98 (65-105)
[2019-04-08 14:00] VITALS: BP 111/61; PULSE 69; RESP 20; TEMP 36.4; O2SAT 100
[2019-04-08 17:32] LABS: Glucose Point of Care 112 (65-105)
[2019-04-08 18:10] VITALS: PULSE 69; RESP 20; O2SAT 100
[2019-04-08 20:21] VITALS: BP 140/53; PULSE 69; RESP 22; TEMP 36; O2SAT 100
[2019-04-08 20:46] LABS: Glucose Point of Care 108 (65-105)
[2019-04-09 05:31] LABS: Basophils Absolute Auto 0.1 K/mm3 (0.0-0.1); Basophils Percent Auto 0.9 % (0.2-1.2); Eosinophils Absolute Auto 0.2 K/mm3 (0-0.3); Eosinophils Percent Auto 3.3 % (0-4.4); Hematocrit 26.8 % (42.0-52.0); Hemoglobin 8.5 g/dL (14.0-18.0); Immature Granulocyte Absolute 0.02 K/mm3 (0.00-0.031); Immature Granulocyte Percent A 0.3 % (0-0.5); Lymphocytes Absolute Auto 2.08 K/mm3 (0.9-3.2); Lymphocytes Percent Auto 32.8 % (18.3-44.2); Mean Corpuscular HGB Conc 31.7 g/dl (32-36); Mean Corpuscular Hemoglobin 26.9 pg (26-34); Mean Corpuscular Volume 84.8 fl (80-100); Monocytes Absolute Auto 0.8 K/mm3 (0.1-0.6); Neutrophils Absolute Auto 3.2 K/mm3 (1.3-6.7); Neutrophils Percent Auto 50.7 % (45.5-73.1); Platelet Count Result 315 k/mm3 (150-375); Red Blood Count 3.16 M/mm3 (4.6-6.20); Red Cell Distribution Width 15.4 % (11.5-14.5); White Blood Count 6.4 K/mm3 (4.5-10.0)
[2019-04-09 05:47] LABS: Blood Urea Nitrogen 25 mg/dL (9-20); Calcium 8.3 mg/dL (8.4-10.2); Carbon Dioxide 24 mmol/L (22-30); Chloride 102 mmol/L (98-107); Estimated CRCL calculation 106 ml/min; Estimated Glomerular Filt Rate > 60; Glucose 136 mg/dL (75-110); Potassium 4.4 mmol/L (3.4-5.0); Sodium 134 mmol/L (137-145)
[2019-04-09 06:06] VITALS: BP 133/56; PULSE 64; RESP 22; TEMP 36.1; O2SAT 99
[2019-04-09 07:40] LABS: Glucose Point of Care 126 (65-105)
--- NOTE | 2019-04-09 09:53 | PCPTNOTE ---
Ritesh Dee was evaluated for a bariatric walker on 04/09/2019 by this physical therapist. The walker will resolve patient's mobility limitations and will be used for ADL's within the home. The patient can safely use the walker. ?The walker will resolve the patient?s mobility deficits, including inability to stand on one leg and ambulate on one leg, decrease endurance and standing balance impairment.
--- NOTE | 2019-04-09 09:55 | PCPTNOTE ---
KATIE MERINO completed an inpatient rehab wheelchair evaluation on Ritesh [place] on 04/09/2019. The patient is unable to safely and independently ambulate household distances due to their current impairments. Their diagnosis is left foot non healing diabetic ulceration and their impairments include decreased strength, decreased endurance, decreased range of motion, decreased balance, lower extremity weakness. The patient demonstrates significant functional mobility limitations that impair their ability to participate in mobility-related activities of daily living (MRADLs), including toileting, feeding, dressing, grooming, and bathing in the customary locations in the home. These limitations cannot be sufficiently resolved by the use of an appropriately fitted cane or walker. It is recommended that the patient utilize a wheelchair for functional mobility within the home in order to facilitate optimal safety, independence and participation in all MRADL's and adequately access their home environment on a regular basis. The patient's home provides adequate access between rooms, maneuvering space, and surfaces to accommodate the recommended wheelchair. The use of a wheelchair for functional mobility is strongly recommended and the patient is receptive to using the wheelchair. The use of this wheelchair will significantly improve the patient's ability to participate in MRADLS and the patient will use it on a regular basis in the home. This will facilitate optimal safety, independence, and participation. The patient has demonstrated sufficient physical and mental capabilities needed to safely propel a manual wheelchair that is provided in the home during a typical day. Recommended Wheelchair Size: 20 by 18 Recommended Wheelchair Cushion: gel wheelchair cushion Wheelchair Leg Recommendations: right LE removable leg rest, left BKA amputee support. Additional recommendations: anti-tippers, swing -away arm rests to accommodate sliding board transfers A heavy duty wheelchair is recommended because the patient weighs more than 250 pounds. Anti-tippers are recommended due to patient demonstrating increased risk for falls. They would benefit from anti-tippers with added safety and stabilization. Evaluating Therapist Date I agree with and certify that the above recommendation is medically necessary. Referring Physician Date I agree with and certify that the above recommendation is medically necessary. Referring Physician Date
[2019-04-09] MEDS: metFORMIN HCL 500 MG TABLET 1000 MG PO (10:01)
[2019-04-09] MEDS: ACIDOPHILUS/BULGARICUS CHEWABLE TABLET 1 TABLET PO (10:02)
[2019-04-09] MEDS: ENOXAPARIN 40 MG/0.4 ML SYRINGE SUB-Q ×2 (10:03→20:42)
[2019-04-09] MEDS: DOCUSATE SODIUM 100 MG CAPSULE PO ×2 (10:03→17:53)
[2019-04-09] MEDS: GABAPENTIN 100 MG CAPSULE PO ×3 (10:03→17:53)
[2019-04-09] MEDS: CLOPIDOGREL BISULFATE 75 MG TABLET PO (10:03)
[2019-04-09] MEDS: lisinopriL 10 MG TABLET PO (10:03)
[2019-04-09] MEDS: EUCERIN CREAM 120 GM JAR 1 APPLIC TOPICAL (10:04)
[2019-04-09] MEDS: NAPROXEN 500 MG TABLET BY MOUTH (10:04)
[2019-04-09] MEDS: PANTOPRAZOLE 40 MG TABLET BY MOUTH (10:04)
[2019-04-09] MEDS: PANTOPRAZOLE SOD SESQUIHYDRATE 20 MG TAB PO (10:04)
[2019-04-09 12:44] LABS: Glucose Point of Care 88 (65-105)
[2019-04-09 14:00] VITALS: BP 120/59; PULSE 78; RESP 18; TEMP 36.2; O2SAT 100
--- NOTE | 2019-04-09 14:08 | WPDNEURORHBP ---
Subjective Date/time seen: 04/09/19 14:08 Interval history: patient is doing fairly well does not have any complaints of headache chest pain shortness of breath nausea vomiting the blood sugars are relatively better controlled little drainage from the stump is noted however does not look infected Review of Systems Constitutional: Constitutional: Reports no additional constitutional complaints Eyes: Eyes: Reports no additional eye complaints ENT: Reports system reviewed and no additional complaints, except as documented Cardiovascular: Cardiovascular: Reports no additional cardiovascular complaints Respiratory: Respiratory: Reports no additional respiratory complaints Gastrointestinal: Gastrointestinal: Reports no additional gastrointestinal complaints Genitourinary: Genitourinary: Reports no additional male genitourinary complaints Musculoskeletal: Musculoskeletal: Reports no additional musculoskeletal complaints Integumentary/Breasts: Skin/Breast: Reports system reviewed and no additional complaints, except as docu Neurologic: Reports system reviewed and no additional complaints, except as documented Psychiatric: Psychiatric: Reports no additional psychiatric complaints Functional Status Ambulation Ability Ability to Ambulate 10 Feet: Minimum Assistance X 1 Ability to Ambulate 50 Feet With 2 Turns: Moderate Assistance X 1 Ambulation Assistive Devices: Walker, Standard Transfers Ability Ability to Transfer In/Out of Chair: Maximum Assistance X 1 Exam Const: General: comfortable and no acute distress HENMT: General nose exam: Normal nares present Eyes: General: appearance normal, both eyes and all related structures Neck: Neck: supple and no JVD Resp: Effort & Inspection: normal respiratory effort Auscultation: clear to auscultation bilaterally Cardio: Rate: regular rate Rhythm: regular rhythm GI: GI Palp: Yes Soft to palpation Auscultation: normal bowel sounds : Male General Exam: Yes normal external exam Skin: General skin exam: normal color and no rashes or lesions noted Neuro: Other: patient's mental status is normal cranial was options normal apart from showing some evidence of diabetic retinopathy he does have evidence of peripheral neuropathy as mentioned in my previous notes with depressed reflexes and sensory deficit lower extremities more so than the upper extremities Extrem: Other: left BKA Psych: Mental Status: mental status grossly normal Objective Data Vital Signs Vital Signs: Vital Signs - 24 hr 04/08/19 18:10 04/08/19 20:21 04/09/19 06:06 Temperature 36.0 C L 36.1 C L Pulse Rate 69 69 64 Respiratory Rate 20 22 H 22 H Blood Pressure 140/53 L 133/56 L Pulse Oximetry 100 100 99 Intake/Output Intake/Output: Intake & Output 04/06/19 04/07/19 04/08/19 04/09/19 23:59 23:59 23:59 23:59 Intake Total 1250 990 770 960 Balance 1250 990 770 960 Meds/Results Medications: Active Medications Generic Name Dose Route Start Last Admin Trade Name Freq PRN Reason Stop Dose Admin Albuterol 2.5 mg 04/01/19 23:45 Albuterol Sulf Neb 2.5mg/0.5ml INHALATION Q4HRT PRN Shortness Of Breath Alteplase, Recombinant 2 mg 04/04/19 13:46 04/04/19 15:23 Cathflo Activase IV PUSH 2 mg ONCE PRN Administration Line Occlusion Alteplase, Recombinant 2 mg 04/04/19 13:49 04/04/19 17:09 Cathflo Activase IV PUSH 2 mg ONCE PRN Administration Line Occlusion Benzonatate 100 mg 04/01/19 23:13 Tessalon Perles PO TID PRN Cough Bisacodyl 10 mg 04/04/19 14:14 Dulcolax Suppository RECTAL DAILY PRN Constipation Bisacodyl 10 mg 04/04/19 14:46 04/06/19 21:10 Dulcolax Tab PO 10 mg DAILY PRN Administration Constipation Clopidogrel Bisulfate 75 mg 04/02/19 09:00 04/09/19 10:03 Plavix PO 75 mg DAILY JOSE A Administration Diphenhydramine HCl 25 mg 04/01/19 23:13 Benadryl Cap PO HS PRN
[2019-04-09 17:47] LABS: Glucose Point of Care 53 (65-105)
[2019-04-09 21:52] LABS: Glucose Point of Care 106 (65-105)
[2019-04-09 22:00] VITALS: BP 132/60; PULSE 66; RESP 18; TEMP 36.7; O2SAT 98
[2019-04-10 01:50] LABS: Glucose Point of Care 83 (65-105)
[2019-04-10 06:00] VITALS: BP 139/77; PULSE 69; RESP 20; TEMP 36.7; O2SAT 99
[2019-04-10 07:06] LABS: Glucose Point of Care 82 (65-105)
[2019-04-10] MEDS: lisinopriL 10 MG TABLET PO (08:34)
[2019-04-10] MEDS: DOCUSATE SODIUM 100 MG CAPSULE PO ×2 (08:35→17:15)
[2019-04-10] MEDS: PANTOPRAZOLE 40 MG TABLET BY MOUTH (08:35)
[2019-04-10] MEDS: NAPROXEN 500 MG TABLET BY MOUTH (08:35)
[2019-04-10] MEDS: GABAPENTIN 100 MG CAPSULE PO ×3 (08:35→17:15)
[2019-04-10] MEDS: ACIDOPHILUS/BULGARICUS CHEWABLE TABLET 1 TABLET PO (08:35)
[2019-04-10] MEDS: PANTOPRAZOLE SOD SESQUIHYDRATE 20 MG TAB PO (08:36)
[2019-04-10] MEDS: CLOPIDOGREL BISULFATE 75 MG TABLET PO (08:36)
[2019-04-10] MEDS: metFORMIN HCL 500 MG TABLET 1000 MG PO (08:36)
[2019-04-10] MEDS: EUCERIN CREAM 120 GM JAR 1 APPLIC TOPICAL (08:36)
[2019-04-10] MEDS: ENOXAPARIN 40 MG/0.4 ML SYRINGE SUB-Q ×2 (10:25→20:35)
--- NOTE | 2019-04-10 11:00 | WPDNEURORHBP ---
Subjective Date/time seen: April 10, 2019 at 11 a.m. Interval history: patient is here because of nonhealing wound from the diabetes of the left foot ultimately had to go left BKA he is a brittle diabetic and has insulin pump but he is able to manage with the help of his senior revenue accountant on a with communication with him. He does not have any new complaints particularly denies any headache chest pain shortness of breath fever chills sore throat no significant drainage from the left BKA noted Review of Systems Constitutional: Constitutional: Reports no additional constitutional complaints Eyes: Eyes: Reports no additional eye complaints ENT: Reports system reviewed and no additional complaints, except as documented Cardiovascular: Cardiovascular: Reports no additional cardiovascular complaints Respiratory: Respiratory: Reports no additional respiratory complaints Gastrointestinal: Gastrointestinal: Reports no additional gastrointestinal complaints Genitourinary: Genitourinary: Reports no additional male genitourinary complaints Musculoskeletal: Musculoskeletal: Reports no additional musculoskeletal complaints Integumentary/Breasts: Skin/Breast: Reports system reviewed and no additional complaints, except as docu Neurologic: Reports system reviewed and no additional complaints, except as documented Psychiatric: Psychiatric: Reports no additional psychiatric complaints Functional Status Ambulation Ability Ability to Ambulate 10 Feet: Minimum Assistance X 1 Ability to Ambulate 50 Feet With 2 Turns: Moderate Assistance X 1 Ambulation Assistive Devices: Walker, Standard Transfers Ability Ability to Transfer In/Out of Chair: Maximum Assistance X 1 Exam Const: General: comfortable and no acute distress HENMT: General nose exam: Normal nares present Mouth: Yes moist mucous membranes Eyes: General: appearance normal, both eyes and all related structures Neck: Neck: supple and no JVD Resp: Effort & Inspection: normal respiratory effort Auscultation: clear to auscultation bilaterally Cardio: Rate: regular rate Rhythm: regular rhythm GI: GI Palp: Yes Soft to palpation Auscultation: normal bowel sounds Skin: General skin exam: normal color and no rashes or lesions noted Neuro: Other: patient is awake and alert well oriented time place and person with normal speech lung function normal cranial nerve examination the strength in the lower extremities in the upper extremities improving with evidence of peripheral neuropathy and probably peripheral vascular disease Extrem: General: normal to inspection Other: left BKA Psych: Mental Status: mental status grossly normal Objective Data Vital Signs Vital Signs: Vital Signs - 24 hr 04/10/19 14:00 04/10/19 22:00 04/11/19 06:00 Temperature 35.7 C L 36.6 C 36.1 C L Pulse Rate 66 71 71 Respiratory Rate 22 H 16 18 Blood Pressure 129/64 146/56 H 148/63 H Pulse Oximetry 100 100 99 Intake/Output Intake/Output: Intake & Output 04/08/19 04/09/19 04/10/19 04/11/19 23:59 23:59 23:59 23:59 Intake Total 770 1490 930 240 Balance 770 1490 930 240 Meds/Results Medications: Active Medications Generic Name Dose Route Start Last Admin Trade Name Freq PRN Reason Stop Dose Admin Albuterol 2.5 mg 04/01/19 23:45 Albuterol Sulf Neb 2.5mg/0.5ml INHALATION Q4HRT PRN Shortness Of Breath Alteplase, Recombinant 2 mg 04/04/19 13:46 04/04/19 15:23 Cathflo Activase IV PUSH 2 mg ONCE PRN Administration Line Occlusion Alteplase, Recombinant 2 mg 04/04/19 13:49 04/04/19 17:09 Cathflo Activase IV PUSH 2 mg ONCE PRN Administration Line Occlusion Benzonatate 100 mg 04/01/19 23:13 Tessalon Perles PO TID PRN Cough Bisacodyl 10 mg 04/04/19 14:14 Dulcolax Suppository RECTAL DAILY PRN Constipation Bisacodyl 10 mg 04/04/19 14:46 04/06/19 21:10 Dulcolax Tab PO 10 mg DAILY PRN Administratio
[2019-04-10 14:00] VITALS: BP 129/64; PULSE 66; RESP 22; TEMP 35.7; O2SAT 100
[2019-04-10 21:26] LABS: Glucose Point of Care 107 (65-105)
[2019-04-10 22:00] VITALS: BP 146/56; PULSE 71; RESP 16; TEMP 36.6; O2SAT 100
[2019-04-11 06:00] VITALS: BP 148/63; PULSE 71; RESP 18; TEMP 36.1; O2SAT 99
[2019-04-11 07:07] LABS: Glucose Point of Care 79 (65-105)
[2019-04-11] MEDS: ACIDOPHILUS/BULGARICUS CHEWABLE TABLET 1 TABLET PO (08:47)
[2019-04-11] MEDS: metFORMIN HCL 500 MG TABLET 1000 MG PO (08:47)
[2019-04-11] MEDS: EUCERIN CREAM 120 GM JAR 1 APPLIC TOPICAL (08:47)
[2019-04-11] MEDS: DOCUSATE SODIUM 100 MG CAPSULE PO ×2 (08:50→17:51)
[2019-04-11] MEDS: ENOXAPARIN 40 MG/0.4 ML SYRINGE SUB-Q ×2 (08:50→21:22)
[2019-04-11] MEDS: GABAPENTIN 100 MG CAPSULE PO ×3 (08:50→17:51)
[2019-04-11] MEDS: CLOPIDOGREL BISULFATE 75 MG TABLET PO (08:50)
[2019-04-11] MEDS: NAPROXEN 500 MG TABLET BY MOUTH (08:51)
[2019-04-11] MEDS: PANTOPRAZOLE SOD SESQUIHYDRATE 20 MG TAB PO (08:51)
[2019-04-11] MEDS: lisinopriL 10 MG TABLET PO (08:51)
[2019-04-11] MEDS: PANTOPRAZOLE 40 MG TABLET BY MOUTH (08:51)
[2019-04-11 10:28] LABS: Glucose Point of Care 59 (65-105)
[2019-04-11 10:28] LABS: Glucose Point of Care 89 (65-105)
[2019-04-11 12:15] LABS: Glucose Point of Care 81 (65-105)
--- NOTE | 2019-04-11 13:21 | PC.NURSE ---
At 09:15 pt dexcom alarmed and gave reading of 69, checked with our machine and got 59. Gave patient cereal and 2% milk, rechecked at 10:15 and was 105 with his and 89 with ours. Will continue to monitor. Dr. Watkins aware and he will contact his physician tomorrow (04/12) and has pump off at this time. Lunch reading at 12:00 94.
[2019-04-11 14:00] VITALS: BP 115/56; PULSE 72; RESP 20; TEMP 36.2; O2SAT 100
--- NOTE | 2019-04-11 14:03 | WPDNEURORHBP ---
Subjective Date/time seen: 04/11/19 14:03 Interval history: the patient is here after having had left BKA due to pain and infection in the foot his diabetic management is done essentially his own communication with the lubrication technician to adjust his insulin pump usually drops into 50s without much of any symptoms of hypoglycemia is planning to call his doctor again at tomorrow to see if the insulin can be decreased from 1.2 milligram/hour to 1.0 milligram/hour He denies any headache chest pain shortness of breath diarrhea or vomiting Review of Systems Constitutional: Constitutional: Reports no additional constitutional complaints Eyes: Eyes: Reports no additional eye complaints ENT: Reports system reviewed and no additional complaints, except as documented Cardiovascular: Cardiovascular: Reports no additional cardiovascular complaints Respiratory: Respiratory: Reports no additional respiratory complaints Gastrointestinal: Gastrointestinal: Reports no additional gastrointestinal complaints Genitourinary: Genitourinary: Reports no additional male genitourinary complaints Musculoskeletal: Musculoskeletal: Reports no additional musculoskeletal complaints Integumentary/Breasts: Skin/Breast: Reports system reviewed and no additional complaints, except as docu Neurologic: Reports system reviewed and no additional complaints, except as documented Psychiatric: Psychiatric: Reports no additional psychiatric complaints Functional Status Ambulation Ability Ability to Ambulate 10 Feet: Minimum Assistance X 1 Ability to Ambulate 50 Feet With 2 Turns: Moderate Assistance X 1 Ambulation Assistive Devices: Walker, Standard Transfers Ability Ability to Transfer In/Out of Chair: Maximum Assistance X 1 Exam Const: General: comfortable and no acute distress HENMT: General nose exam: Normal nares present Mouth: Yes moist mucous membranes Eyes: General: appearance normal, both eyes and all related structures Other: evidence of bilateral mild retinopathy related to diabetes Neck: Neck: supple and no JVD Resp: Effort & Inspection: normal respiratory effort Auscultation: clear to auscultation bilaterally Cardio: Rate: regular rate Rhythm: regular rhythm GI: GI Palp: Yes Soft to palpation Auscultation: normal bowel sounds Skin: General skin exam: normal color and no rashes or lesions noted Neuro: Other: normal mental status examination, normal cranial examination apart from evidence of diabetic retinopathy the generalized weakness related to diabetic peripheral neuropathy is improving and he is able to engage in therapy quite well and remarkably well Extrem: Other: evidence of peripheral neuropathy and peripheral vascular disease and the left BKA clean and healthy Objective Data Vital Signs Vital Signs: Vital Signs - 24 hr 04/10/19 22:00 04/11/19 06:00 Temperature 36.6 C 36.1 C L Pulse Rate 71 71 Respiratory Rate 16 18 Blood Pressure 146/56 H 148/63 H Pulse Oximetry 100 99 Intake/Output Intake/Output: Intake & Output 04/08/19 04/09/19 04/10/19 04/11/19 23:59 23:59 23:59 23:59 Intake Total 770 1490 930 240 Balance 770 1490 930 240 Meds/Results Medications: Active Medications Generic Name Dose Route Start Last Admin Trade Name Freq PRN Reason Stop Dose Admin Albuterol 2.5 mg 04/01/19 23:45 Albuterol Sulf Neb 2.5mg/0.5ml INHALATION Q4HRT PRN Shortness Of Breath Alteplase, Recombinant 2 mg 04/04/19 13:46 04/04/19 15:23 Cathflo Activase IV PUSH 2 mg ONCE PRN Administration Line Occlusion Alteplase, Recombinant 2 mg 04/04/19 13:49 04/04/19 17:09 Cathflo Activase IV PUSH 2 mg ONCE PRN Administration Line Occlusion Benzonatate 100 mg 04/01/19 23:13 Tessalon Perles PO TID PRN Cough Bisacodyl 10 mg 04/04/19 14:14 Dulcolax Suppository RECTAL DAILY PRN Constipation Bisacodyl 10 mg 04/04/19 14:46 04/06/19 21:10 Dulcolax Ta
[2019-04-11 17:34] LABS: Glucose Point of Care 147 (65-105)
[2019-04-11 21:08] VITALS: BP 125/53; PULSE 81; RESP 20; TEMP 36.1; O2SAT 98
[2019-04-11 21:30] LABS: Glucose Point of Care 161 (65-105)
[2019-04-12 01:15] LABS: Glucose Point of Care 45 (65-105)
[2019-04-12 02:02] LABS: Glucose Point of Care 91 (65-105)
[2019-04-12 06:00] VITALS: BP 129/57; PULSE 61; RESP 16; TEMP 36.1; O2SAT 99
[2019-04-12 06:59] LABS: Glucose Point of Care 131 (65-105)
[2019-04-12] MEDS: ACIDOPHILUS/BULGARICUS CHEWABLE TABLET 1 TABLET PO (10:33)
[2019-04-12] MEDS: metFORMIN HCL 500 MG TABLET 1000 MG PO (10:33)
[2019-04-12] MEDS: GABAPENTIN 100 MG CAPSULE PO ×3 (10:34→17:46)
[2019-04-12] MEDS: ENOXAPARIN 40 MG/0.4 ML SYRINGE SUB-Q ×2 (10:34→21:37)
[2019-04-12] MEDS: CLOPIDOGREL BISULFATE 75 MG TABLET PO (10:34)
[2019-04-12] MEDS: DOCUSATE SODIUM 100 MG CAPSULE PO ×2 (10:34→17:46)
[2019-04-12] MEDS: lisinopriL 10 MG TABLET PO (10:35)
[2019-04-12] MEDS: NAPROXEN 500 MG TABLET BY MOUTH (10:35)
[2019-04-12] MEDS: PANTOPRAZOLE SOD SESQUIHYDRATE 20 MG TAB PO (10:36)
[2019-04-12] MEDS: EUCERIN CREAM 120 GM JAR 1 APPLIC TOPICAL (10:36)
[2019-04-12] MEDS: PANTOPRAZOLE 40 MG TABLET BY MOUTH (10:37)
--- NOTE | 2019-04-12 12:22 | PCDIET ---
Nutrition Follow-Up Complete: Nutrition Diagnosis: Inconsistent carbohydrate intake related to T2DM dx as evidenced by patient's home meal reports (eating 2 meals and an occasional snack). Nutrition Goals: Patient will consume greater than 75% of all meals and drink Narayan 1x/day Goals met. Patient consuming 75-100% of meals on carbohydrate controlled diet with Narayan daily. Encouraged HS snack to prevent hypoglycemia during the night to which patient was agreeable. Last recorded weight is 156.4 kg. Recommend obtaining new weight. Bowel Motility: +BM today. Labs Reviewed: Glu (131) Meds Noted: Albuterol, Insulin, Lactinex, Rocephin, Glucophage, Colace, Roxicodone, Protonix Additional Notes: Left leg incision with dressing. No pressure sores documented. Nutrition Monitoring and Evaluation: Will follow up in 7 days with same goals.
[2019-04-12 12:32] LABS: Glucose Point of Care 171 (65-105)
[2019-04-12 14:00] VITALS: BP 124/55; PULSE 74; RESP 17; TEMP 36; O2SAT 98
--- NOTE | 2019-04-12 16:39 | PCCDE ---
diabetes f/up: Pt visited [id number]: noted pt has had 2 episodes of hypoglycemia in the last 36 hours. pt suspended pump from approx 0100 to 0630 this am and BG was 131 at breakfast, 171 at lunch and currently 78 on his Dexcom. Pt sts he called his endo this am for further insulin pump adjustments and is waiting for return call. Settings were adjusted/decreased by endo last week to: 12A-6A 1.25 units/hr, 6A-12A 1.2 units/hr and carb ratio decreased to 1:10. Pt sts he has been missing food items on trays and he sts he reported this to RD; also sts RD is adjusted diet to 5 carbs/meal and sending HS snack. Answered pt questions about differences in CGM or sensor glucose compared to BGM d/t lag time. Answered questions about sharp disposal and provided h/o. Agree with increase in diet for now until insulin is adjusted. Provided business card.
[2019-04-12 18:06] LABS: Glucose Point of Care 44 (65-105)
[2019-04-12 18:06] LABS: Glucose Point of Care 76 (65-105)
[2019-04-12 21:55] VITALS: BP 132/51; PULSE 72; RESP 20; TEMP 36.2; O2SAT 99
[2019-04-12 23:50] VITALS: PULSE 72; O2SAT 98
[2019-04-13 06:00] VITALS: BP 134/56; PULSE 66; RESP 20; TEMP 36.6; O2SAT 100
[2019-04-13] MEDS: metFORMIN HCL 500 MG TABLET 1000 MG PO (09:50)
[2019-04-13] MEDS: CLOPIDOGREL BISULFATE 75 MG TABLET PO (09:50)
[2019-04-13] MEDS: ENOXAPARIN 40 MG/0.4 ML SYRINGE SUB-Q ×2 (09:50→21:31)
[2019-04-13] MEDS: DOCUSATE SODIUM 100 MG CAPSULE PO ×2 (09:50→17:33)
[2019-04-13] MEDS: ACIDOPHILUS/BULGARICUS CHEWABLE TABLET 1 TABLET PO (09:50)
[2019-04-13] MEDS: PANTOPRAZOLE 40 MG TABLET BY MOUTH (09:51)
[2019-04-13] MEDS: GABAPENTIN 100 MG CAPSULE PO ×3 (09:51→17:33)
[2019-04-13] MEDS: PANTOPRAZOLE SOD SESQUIHYDRATE 20 MG TAB PO (09:51)
[2019-04-13] MEDS: NAPROXEN 500 MG TABLET BY MOUTH (09:51)
[2019-04-13] MEDS: lisinopriL 10 MG TABLET PO (09:51)
[2019-04-13 12:43] LABS: Glucose Point of Care 105 (65-105)
[2019-04-13] MEDS: EUCERIN CREAM 120 GM JAR 1 APPLIC TOPICAL (13:10)
--- NOTE | 2019-04-13 13:54 | WPDNEURORHBP ---
Subjective Date/time seen: 04/13/19 13:54 Interval history: this 64-year-old gentleman is here on the acute rehab after having had left [id number] amputation because of nonhealing wound his diabetic control has grade really fluctuated the patient has been in touch with the absorption plant operator to has been managing his insulin pump and waiting for his call he denies any chest pain shortness of breath fever chills sore throat Review of Systems Constitutional: Constitutional: Reports no additional constitutional complaints Eyes: Eyes: Reports no additional eye complaints ENT: Reports system reviewed and no additional complaints, except as documented Cardiovascular: Cardiovascular: Reports no additional cardiovascular complaints Respiratory: Respiratory: Reports no additional respiratory complaints Gastrointestinal: Gastrointestinal: Reports no additional gastrointestinal complaints Genitourinary: Genitourinary: Reports no additional male genitourinary complaints Musculoskeletal: Musculoskeletal: Reports no additional musculoskeletal complaints Integumentary/Breasts: Skin/Breast: Reports system reviewed and no additional complaints, except as docu Neurologic: Reports system reviewed and no additional complaints, except as documented Psychiatric: Psychiatric: Reports no additional psychiatric complaints Functional Status Ambulation Ability Ability to Ambulate 10 Feet: Minimum Assistance X 1 Ability to Ambulate 50 Feet With 2 Turns: Moderate Assistance X 1 Ambulation Assistive Devices: Walker, Standard Transfers Ability Ability to Transfer In/Out of Chair: Maximum Assistance X 1 Exam Const: General: comfortable and no acute distress HENMT: General nose exam: Normal nares present Mouth: Yes moist mucous membranes Eyes: General: appearance normal, both eyes and all related structures Neck: Neck: supple and no JVD Resp: Effort & Inspection: normal respiratory effort Auscultation: clear to auscultation bilaterally Cardio: Rate: regular rate Rhythm: regular rhythm GI: GI Palp: Yes Soft to palpation Auscultation: normal bowel sounds Skin: General skin exam: normal color and no rashes or lesions noted Neuro: Other: mental status is normal cranial nerve examination is normal the strength in general is improving the peripheral neuropathy remains stable Extrem: Other: the stump from left BKA is clean Psych: Mental Status: mental status grossly normal Objective Data Vital Signs Vital Signs: Vital Signs - 24 hr 04/12/19 14:00 04/12/19 21:55 04/12/19 23:50 Temperature 36.0 C L 36.2 C L Pulse Rate 74 72 72 Respiratory Rate 17 20 Blood Pressure 124/55 L 132/51 L Pulse Oximetry 98 99 98 04/13/19 06:00 Temperature 36.6 C Pulse Rate 66 Respiratory Rate 20 Blood Pressure 134/56 L Pulse Oximetry 100 Intake/Output Intake/Output: Intake & Output 04/10/19 04/11/19 04/12/19 04/13/19 23:59 23:59 23:59 23:59 Intake Total 516 085 1002 240 Balance 084 474 2405 240 Meds/Results Medications: Active Medications Generic Name Dose Route Start Last Admin Trade Name Freq PRN Reason Stop Dose Admin Albuterol 2.5 mg 04/01/19 23:45 Albuterol Sulf Neb 2.5mg/0.5ml INHALATION Q4HRT PRN Shortness Of Breath Alteplase, Recombinant 2 mg 04/04/19 13:46 04/04/19 15:23 Cathflo Activase IV PUSH 2 mg ONCE PRN Administration Line Occlusion Alteplase, Recombinant 2 mg 04/04/19 13:49 04/04/19 17:09 Cathflo Activase IV PUSH 2 mg ONCE PRN Administration Line Occlusion Benzonatate 100 mg 04/01/19 23:13 Tessalon Perles PO TID PRN Cough Bisacodyl 10 mg 04/04/19 14:14 Dulcolax Suppository RECTAL DAILY PRN Constipation Bisacodyl 10 mg 04/04/19 14:46 04/06/19 21:10 Dulcolax Tab PO 10 mg DAILY PRN Administration Constipation Clopidogrel Bisulfate 75 mg 04/02/19 09:00 04/13/19 09:50 Plavix PO 75 mg DAILY [facility] Ad
[2019-04-13 14:00] VITALS: BP 138/54; PULSE 67; RESP 18; TEMP 36.1; O2SAT 100
[2019-04-13 17:50] LABS: Glucose Point of Care 93 (65-105)
[2019-04-13 21:46] VITALS: BP 122/53; PULSE 65; RESP 20; TEMP 36.3; O2SAT 99
[2019-04-13 21:50] VITALS: PULSE 70; O2SAT 97
[2019-04-13 22:50] VITALS: PULSE 71; O2SAT 97
[2019-04-14 02:32] LABS: Glucose Point of Care 42 (65-105)
[2019-04-14 03:01] LABS: Glucose Point of Care 60 (65-105)
[2019-04-14 05:59] VITALS: BP 149/57; PULSE 59; RESP 20; TEMP 36; O2SAT 100
[2019-04-14 07:27] LABS: Glucose Point of Care 100 (65-105)
[2019-04-14] MEDS: ACIDOPHILUS/BULGARICUS CHEWABLE TABLET 1 TABLET PO (09:30)
[2019-04-14] MEDS: CLOPIDOGREL BISULFATE 75 MG TABLET PO (09:30)
[2019-04-14] MEDS: DOCUSATE SODIUM 100 MG CAPSULE PO ×2 (09:30→17:25)
[2019-04-14] MEDS: metFORMIN HCL 500 MG TABLET 1000 MG PO (09:30)
[2019-04-14] MEDS: GABAPENTIN 100 MG CAPSULE PO ×3 (09:31→17:26)
[2019-04-14] MEDS: EUCERIN CREAM 120 GM JAR 1 APPLIC TOPICAL (09:31)
[2019-04-14] MEDS: ENOXAPARIN 40 MG/0.4 ML SYRINGE SUB-Q ×2 (09:31→21:04)
[2019-04-14] MEDS: lisinopriL 10 MG TABLET PO (09:31)
[2019-04-14] MEDS: NAPROXEN 500 MG TABLET BY MOUTH (09:31)
[2019-04-14] MEDS: PANTOPRAZOLE 40 MG TABLET BY MOUTH (09:32)
[2019-04-14] MEDS: PANTOPRAZOLE SOD SESQUIHYDRATE 20 MG TAB PO (09:32)
--- NOTE | 2019-04-14 10:18 | PC.NURSE ---
Patient spoke with his PCP this morning and basal rate changed to 1.0 all day.
[2019-04-14] MEDS: methylPREDNISolone (MEDROL) DOSEPACK 4 MG TABLETS PO ×4 (11:40→21:04)
[2019-04-14 12:07] LABS: Glucose Point of Care 112 (65-105)
--- NOTE | 2019-04-14 13:24 | WPDNEURORHBP ---
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 Review of Systems Review of Systems: All systems reviewed & are unremarkable except as noted in HPI and below Functional Status Ambulation Ability Ability to Ambulate 10 Feet: Minimum Assistance X 1 Ability to Ambulate 50 Feet With 2 Turns: Moderate Assistance X 1 Ambulation Assistive Devices: Walker, Standard Transfers Ability Ability to Transfer In/Out of Chair: Maximum Assistance X 1 Exam Const: General: comfortable and no acute distress HENMT: General nose exam: Normal nares present Mouth: Yes moist mucous membranes Eyes: General: appearance normal, both eyes and all related structures Neck: Neck: supple and no JVD Resp: Effort & Inspection: normal respiratory effort Auscultation: clear to auscultation bilaterally Cardio: Rate: regular rate Rhythm: regular rhythm GI: GI Palp: Yes Soft to palpation Auscultation: normal bowel sounds Skin: Other: patient has generalized macular papular rash over almost entire back and also front of the right chest with some rash on both upper extremities Neuro: Other: patient is speech and language functions are normal cranial examination is normal he does have evidence of peripheral neuropathy affecting lower extremities more so than the upper extremities overall strength has improved Extrem: Other: left BKA Psych: Mental Status: mental status grossly normal Objective Data Vital Signs Vital Signs: Vital Signs - 24 hr 04/13/19 14:00 04/13/19 21:46 04/13/19 21:50 Temperature 36.1 C L 36.3 C L Pulse Rate 67 65 70 Respiratory Rate 18 20 Blood Pressure 138/54 L 122/53 L Pulse Oximetry 100 99 97 04/13/19 22:50 04/14/19 05:59 Temperature 36.0 C L Pulse Rate 71 59 L Respiratory Rate 20 Blood Pressure 149/57 H Pulse Oximetry 97 100 Intake/Output Intake/Output: Intake & Output 04/11/19 04/12/19 04/13/19 04/14/19 23:59 23:59 23:59 23:59 Intake Total 770 1730 770 240 Balance 770 1730 770 240 Meds/Results Medications: Active Medications Generic Name Dose Route Start Last Admin Trade Name Freq PRN Reason Stop Dose Admin Albuterol 2.5 mg 04/01/19 23:45 Albuterol Sulf Neb 2.5mg/0.5ml INHALATION Q4HRT PRN Shortness Of Breath Alteplase, Recombinant 2 mg 04/04/19 13:46 04/04/19 15:23 Cathflo Activase IV PUSH 2 mg ONCE PRN Administration Line Occlusion Alteplase, Recombinant 2 mg 04/04/19 13:49 04/04/19 17:09 Cathflo Activase IV PUSH 2 mg ONCE PRN Administration Line Occlusion Benzonatate 100 mg 04/01/19 23:13 Tessalon Perles PO TID PRN Cough Bisacodyl 10 mg 04/04/19 14:14 Dulcolax Suppository RECTAL DAILY PRN Constipation Bisacodyl 10 mg 04/04/19 14:46 04/06/19 21:10 Dulcolax Tab PO 10 mg DAILY PRN Administration Constipation Clopidogrel Bisulfate 75 mg 04/02/19 09:00 04/14/19 09:30 Plavix PO 75 mg DAILY JOSE A Administration Diphenhydramine HCl 25 mg 04/01/19 23:13 Benadryl Cap PO HS PRN Insomnia Docusate Sodium 100 mg 04/02/19 09:00 04/14/19 09:30 Colace Capsule PO 100 mg BID JOSE A Administration Enoxaparin Sodium 40 mg 04/01/19 23:55 04/14/19 09:31 Lovenox SUB-Q 40 mg Q12HR JOSE A Administration Fluticasone Propionate 2 spray 04/06/19 10:57 Flonase 0.05% Nasal [place] NASAL DAILY PRN Nasal Congestion Gabapentin 100 mg 0
[2019-04-14 14:00] VITALS: BP 142/61; PULSE 85; RESP 20; TEMP 36.4; O2SAT 98
[2019-04-14 16:59] LABS: Glucose Point of Care 100 (65-105)
[2019-04-14 21:16] VITALS: BP 136/52; PULSE 72; RESP 20; TEMP 36.3; O2SAT 100
[2019-04-14 21:18] LABS: Glucose Point of Care 121 (65-105)
[2019-04-14 23:00] VITALS: PULSE 73; O2SAT 95
[2019-04-15 06:00] VITALS: BP 142/65; PULSE 65; RESP 20; TEMP 36.2; O2SAT 100
[2019-04-15] MEDS: methylPREDNISolone (MEDROL) DOSEPACK 4 MG TABLETS PO ×4 (06:39→20:25)
[2019-04-15 06:54] LABS: Glucose Point of Care 111 (65-105)
--- NOTE | 2019-04-15 07:45 | PCPTNOTE ---
Dr. Clarke, I have been following your patient, Ritesh Dee for physical therapy here at [facility]. The patient has progressed very well and is now independent with sliding board transfers from bed, wheelchair, commode and currently working on stand pivot transfer with bariatric walker which requires supervision. Patient is independent with wheelchair mobility on ramp and level surfaces and is able to ambulate short distances 30 feet NWB on left BKA. Patient has been instructed on daily basis with stump wrapping, skin care, positioning, and BKA strengthening, however patient can not physically complete stump wrapping independently. Patient is scheduled to be d/c next week to home setting which has been adapted for wheelchair use. I would like to recommend stump protector (ampu-sheild) and stump weight guesser sock for patient use prior to going home. Could I please receive orders for these items per your approval. Thank you, Petrona Vang [facility] unit [phone]
[2019-04-15] MEDS: ENOXAPARIN 40 MG/0.4 ML SYRINGE SUB-Q ×2 (08:41→20:23)
[2019-04-15] MEDS: DOCUSATE SODIUM 100 MG CAPSULE PO ×2 (08:43→17:26)
[2019-04-15] MEDS: metFORMIN HCL 500 MG TABLET 1000 MG PO (08:43)
[2019-04-15] MEDS: GABAPENTIN 100 MG CAPSULE PO ×3 (08:43→17:26)
[2019-04-15] MEDS: ACIDOPHILUS/BULGARICUS CHEWABLE TABLET 1 TABLET PO (08:44)
[2019-04-15] MEDS: NAPROXEN 500 MG TABLET BY MOUTH (08:44)
[2019-04-15] MEDS: lisinopriL 10 MG TABLET PO (08:44)
[2019-04-15] MEDS: CLOPIDOGREL BISULFATE 75 MG TABLET PO (08:44)
[2019-04-15] MEDS: EUCERIN CREAM 120 GM JAR 1 APPLIC TOPICAL (08:49)
[2019-04-15] MEDS: PANTOPRAZOLE 40 MG TABLET BY MOUTH (08:50)
[2019-04-15 11:49] LABS: Glucose Point of Care 113 (65-105)
[2019-04-15] MEDS: DIPHENHYDRAMINE 1%/ZINC 0.1% CREAM 30 GM TUBE 1 APPLIC TOPICAL ×2 (12:08→17:26)
[2019-04-15 14:00] VITALS: BP 152/53; PULSE 70; RESP 18; TEMP 36; O2SAT 99
--- NOTE | 2019-04-15 14:30 | PCOTNOTE ---
Patient unable to be seen for PM treatment session this date. Patient is out of the building for a scheduled doctors appointment.
--- NOTE | 2019-04-15 16:45 | PC.NURSE ---
Return from Dr. villafuerte. No change is assessment.
[2019-04-15 21:22] LABS: Glucose Point of Care 151 (65-105)
[2019-04-15 21:57] VITALS: BP 138/54; PULSE 69; RESP 18; TEMP 36.2; O2SAT 100
[2019-04-15 23:08] VITALS: PULSE 72; O2SAT 95
[2019-04-16] MEDS: methylPREDNISolone (MEDROL) DOSEPACK 4 MG TABLETS PO ×4 (05:30→19:57)
[2019-04-16 06:00] VITALS: BP 151/69; PULSE 61; RESP 20; TEMP 35.8; O2SAT 100
[2019-04-16 07:02] LABS: Basophils Percent Auto 0.5 % (0.2-1.2); Eosinophils Absolute Auto 0.1 K/mm3 (0-0.3); Eosinophils Percent Auto 1.1 % (0-4.4); Hematocrit 29.2 % (42.0-52.0); Hemoglobin 9.2 g/dL (14.0-18.0); Immature Granulocyte Absolute 0.05 K/mm3 (0.00-0.031); Immature Granulocyte Percent A 0.6 % (0-0.5); Lymphocytes Percent Auto 22.5 % (18.3-44.2); Mean Corpuscular HGB Conc 31.5 g/dl (32-36); Mean Corpuscular Volume 85.6 fl (80-100); Monocytes Absolute Auto 0.8 K/mm3 (0.1-0.6); Monocytes Percent Auto 9.5 % (2.6-8.5); Neutrophils Absolute Auto 5.3 K/mm3 (1.3-6.7); Neutrophils Percent Auto 65.8 % (45.5-73.1); Platelet Count Result 275 k/mm3 (150-375); Red Blood Count 3.41 M/mm3 (4.6-6.20); Red Cell Distribution Width 16.1 % (11.5-14.5)
[2019-04-16 07:06] LABS: Glucose Point of Care 131 (65-105)
[2019-04-16 08:28] LABS: Blood Urea Nitrogen 23 mg/dL (9-20); Calcium 9.3 mg/dL (8.4-10.2); Carbon Dioxide 22 mmol/L (22-30); Chloride 102 mmol/L (98-107); Estimated CRCL calculation 117 ml/min; Estimated Glomerular Filt Rate > 60; Glucose 100 mg/dL (75-110); Potassium 5.2 mmol/L (3.4-5.0); Sodium 137 mmol/L (137-145)
[2019-04-16] MEDS: metFORMIN HCL 500 MG TABLET 1000 MG PO (09:00)
[2019-04-16] MEDS: ACIDOPHILUS/BULGARICUS CHEWABLE TABLET 1 TABLET PO (09:00)
[2019-04-16] MEDS: DOCUSATE SODIUM 100 MG CAPSULE PO ×2 (09:01→18:09)
[2019-04-16] MEDS: GABAPENTIN 100 MG CAPSULE PO ×3 (09:01→18:09)
[2019-04-16] MEDS: lisinopriL 10 MG TABLET PO (09:01)
[2019-04-16] MEDS: ENOXAPARIN 40 MG/0.4 ML SYRINGE SUB-Q ×2 (09:01→19:56)
[2019-04-16] MEDS: CLOPIDOGREL BISULFATE 75 MG TABLET PO (09:01)
[2019-04-16] MEDS: DIPHENHYDRAMINE 1%/ZINC 0.1% CREAM 30 GM TUBE 1 APPLIC TOPICAL ×3 (09:01→18:09)
[2019-04-16] MEDS: EUCERIN CREAM 120 GM JAR 1 APPLIC TOPICAL (09:02)
[2019-04-16] MEDS: PANTOPRAZOLE 40 MG TABLET BY MOUTH (09:02)
[2019-04-16] MEDS: NAPROXEN 500 MG TABLET BY MOUTH (09:02)
[2019-04-16 11:58] LABS: Glucose Point of Care 96 (65-105)
[2019-04-16 14:00] VITALS: BP 146/78; PULSE 77; RESP 20; TEMP 36.6; O2SAT 99
--- NOTE | 2019-04-16 16:37 | WPDNEURORHBP ---
Subjective Date/time seen: does not c/o /21/20 16:37 Review of Systems Review of Systems: All systems reviewed & are unremarkable except as noted in HPI and below Functional Status Ambulation Ability Ability to Ambulate 10 Feet: Standby Assistance Ability to Ambulate 50 Feet With 2 Turns: Moderate Assistance X 1 Ambulation Assistive Devices: Walker, Standard Transfers Ability Ability to Transfer In/Out of Chair: Maximum Assistance X 1 Exam Const: General: cooperative, healthy appearing, comfortable and no acute distress Nutritional Appearance: average body habitus and well nourished Orientation/consciousness: patient oriented x3 Limitations: other limitations Other: leftBKA Eyes: General: appearance normal, both eyes and all related structures Conjunctivae: conjunctivae normal Sclera: sclerae normal Pupils: Equal, round and reactive pupils present and Pupils normal by confrontation EOM: EOMs intact bilaterally Direct Ophthalmoscopy: normal light reflex Neck: Neck: full ROM and no lymphadenopathy Resp: Auscultation: clear to auscultation bilaterally Cardio: Rate: regular rate Rhythm: regular rhythm GI: Auscultation: normal bowel sounds Skin: General skin exam: no rashes or lesions noted (fading) Neuro: General: patient oriented x3 Cranial nerves: Yes CN's II-XII intact bilaterally Cognition (Neuro): normal cognition Speech: normal speech Gait exam (Neuro): Other gait observations present Motor exam (neuro): 5/5 motor strength present throughout Sensory Exam: Abnormal lower extremity sensory exam (decreased distally) Deep tendon reflexes (DTR's): Right triceps reflex intensity grade: 1+, Left triceps reflex intensity grade: 1+, Rt Biceps (C5, C6): 1+, Left biceps reflex intensity grade: 1+, Right patellar reflex intensity grade: 0, Left patellar reflex intensity grade: 0 and Right ankle reflex intensity grade: 0 Plantar Reflex Responses: downgoing: right Coordination: [id number] test normal Psych: Appearance: grossly normal Objective Data Vital Signs Vital Signs: Vital Signs - 24 hr 04/15/19 21:57 04/15/19 23:08 04/16/19 06:00 Temperature 36.2 C L 35.8 C L Pulse Rate 69 72 61 Respiratory Rate 18 20 Blood Pressure 138/54 L 151/69 H Pulse Oximetry 100 95 100 Intake/Output Intake/Output: Intake & Output 02/1804/14/19 04/15/19 04/16/19 23:59 23:59 23:59 23:59 Intake Total 047 707 9178 840 Balance 097 865 7878 840 Meds/Results Medications: Active Medications Generic Name Dose Route Start Last Admin Trade Name Freq PRN Reason Stop Dose Admin Albuterol 2.5 mg 04/01/19 23:45 Albuterol Sulf Neb 2.5mg/0.5ml INHALATION Q4HRT PRN Shortness Of Breath Alteplase, Recombinant 2 mg 04/04/19 13:46 04/04/19 15:23 Cathflo Activase IV PUSH 2 mg ONCE PRN Administration Line Occlusion Alteplase, Recombinant 2 mg 04/04/19 13:49 04/04/19 17:09 Cathflo Activase IV PUSH 2 mg ONCE PRN Administration Line Occlusion Benzonatate 100 mg 04/01/19 23:13 Tessalon Perles PO TID PRN Cough Bisacodyl 10 mg 04/04/19 14:14 Dulcolax Suppository RECTAL DAILY PRN Constipation Bisacodyl 10 mg 04/04/19 14:46 04/06/19 21:10 Dulcolax Tab PO 10 mg DAILY PRN Administration Constipation Clopidogrel Bisulfate 75 mg 04/02/19 09:00 04/16/19 09:01 Plavix PO 75 mg DAILY JOSE A Administration Dextrose 12.5 gm 04/16/19 13:48 Dextrose 50% Syringe IV PUSH PRN PRN Hypoglycemia Protocol Diphenhydramine HCl 25 mg 04/01/19 23:13 Benadryl Cap PO HS PRN Insomnia Docusate Sodium 100 mg 04/02/19 09:00 04/16/19 09:01 Colace Capsule PO 100 mg BID JOSE A Administration Enoxaparin Sodium 40 mg 04/01/19 23:55 04/16/19 09:01 Lovenox SUB-Q 40 mg Q12HR JOSE A Administration Fluticasone Propionate 2 spray 04/06/19 10:57 Flonase 0.05% Nasal [place] NASAL CLAUDIA
[2019-04-16 17:02] LABS: Glucose Point of Care 49 (65-105)
[2019-04-16] MEDS: DEXTROSE 50% 25 GM/50 ML SYRINGE IV PUSH (17:59)
[2019-04-16 18:58] LABS: Glucose Point of Care 124 (65-105)
[2019-04-16 18:58] LABS: Glucose Point of Care 47 (65-105)
[2019-04-16 18:58] LABS: Glucose Point of Care 116 (65-105)
--- NOTE | 2019-04-16 19:00 | PC.NURSE ---
Checked patients blood sugar at 1700 (his sensor was low and his spare malfunctioned) and was 49 and stated felt tired and slightly light-headed. Ate supper and re checked; was 47. Pushed 12.5 dextrose and re-checked and stated felt better (was 116). Checked again a 1/2 hour later and was 124. Ate his snack and will continue to monitor. Dr. Matias was notified as well and his insulin pump is off at this time. Message left for family life educator as well.
[2019-04-16 21:04] LABS: Glucose Point of Care 183 (65-105)
[2019-04-16 22:00] VITALS: BP 145/67; PULSE 69; RESP 18; TEMP 36.3; O2SAT 100
[2019-04-16 22:42] VITALS: PULSE 77; O2SAT 96
[2019-04-17 00:18] VITALS: PULSE 75; O2SAT 97
[2019-04-17 02:25] VITALS: PULSE 72; O2SAT 98
[2019-04-17 06:00] VITALS: BP 140/68; PULSE 65; RESP 20; TEMP 35.7; O2SAT 99
[2019-04-17] MEDS: methylPREDNISolone (MEDROL) DOSEPACK 4 MG TABLETS PO ×3 (06:02→19:46)
[2019-04-17 06:56] LABS: Glucose Point of Care 80 (65-105)
[2019-04-17] MEDS: NAPROXEN 500 MG TABLET BY MOUTH (09:00)
[2019-04-17] MEDS: ENOXAPARIN 40 MG/0.4 ML SYRINGE SUB-Q ×2 (09:00→19:45)
[2019-04-17] MEDS: GABAPENTIN 100 MG CAPSULE PO ×3 (09:00→17:54)
[2019-04-17] MEDS: metFORMIN HCL 500 MG TABLET 1000 MG PO (09:01)
[2019-04-17] MEDS: DOCUSATE SODIUM 100 MG CAPSULE PO ×2 (09:01→17:54)
[2019-04-17] MEDS: PANTOPRAZOLE 40 MG TABLET BY MOUTH (09:01)
[2019-04-17] MEDS: CLOPIDOGREL BISULFATE 75 MG TABLET PO (09:01)
[2019-04-17] MEDS: BENZONATATE 100 MG CAPSULE PO (09:01)
[2019-04-17] MEDS: ACIDOPHILUS/BULGARICUS CHEWABLE TABLET 1 TABLET PO (09:02)
[2019-04-17] MEDS: DIPHENHYDRAMINE 1%/ZINC 0.1% CREAM 30 GM TUBE 1 APPLIC TOPICAL ×3 (09:02→17:54)
[2019-04-17] MEDS: lisinopriL 10 MG TABLET PO (09:02)
[2019-04-17 09:50] LABS: Glucose Point of Care 164 (65-105)
[2019-04-17 12:21] LABS: Glucose Point of Care 110 (65-105)
[2019-04-17 14:00] VITALS: BP 137/59; PULSE 66; RESP 18; TEMP 36.2; O2SAT 100
[2019-04-17 17:26] LABS: Glucose Point of Care 114 (65-105)
--- NOTE | 2019-04-17 19:09 | PC.NURSE ---
stump wrapped and family educated on how it is done. Patient tolerated well.
[2019-04-17 21:40] LABS: Glucose Point of Care 170 (65-105)
[2019-04-17 21:58] VITALS: BP 153/62; PULSE 71; RESP 18; TEMP 36.3; O2SAT 100
[2019-04-17 23:08] VITALS: PULSE 70; O2SAT 96
[2019-04-18 06:00] VITALS: BP 142/61; PULSE 59; RESP 20; TEMP 36.1; O2SAT 100
[2019-04-18] MEDS: methylPREDNISolone (MEDROL) DOSEPACK 4 MG TABLETS PO ×2 (06:07→21:01)
[2019-04-18 06:34] LABS: Glucose Point of Care 100 (65-105)
[2019-04-18] MEDS: ACIDOPHILUS/BULGARICUS CHEWABLE TABLET 1 TABLET PO (09:39)
[2019-04-18] MEDS: metFORMIN HCL 500 MG TABLET 1000 MG PO (09:39)
[2019-04-18] MEDS: CLOPIDOGREL BISULFATE 75 MG TABLET PO (09:40)
[2019-04-18] MEDS: DIPHENHYDRAMINE 1%/ZINC 0.1% CREAM 30 GM TUBE 1 APPLIC TOPICAL ×3 (09:40→18:18)
[2019-04-18] MEDS: ENOXAPARIN 40 MG/0.4 ML SYRINGE SUB-Q ×2 (09:40→21:02)
[2019-04-18] MEDS: lisinopriL 10 MG TABLET PO (09:41)
[2019-04-18] MEDS: PANTOPRAZOLE 40 MG TABLET BY MOUTH (09:41)
[2019-04-18] MEDS: NAPROXEN 500 MG TABLET BY MOUTH (09:41)
[2019-04-18] MEDS: GABAPENTIN 100 MG CAPSULE PO ×3 (09:41→18:17)
[2019-04-18] MEDS: BENZONATATE 100 MG CAPSULE PO (09:42)
[2019-04-18] MEDS: EUCERIN CREAM 120 GM JAR 1 APPLIC TOPICAL (09:43)
[2019-04-18 12:50] LABS: Glucose Point of Care 110 (65-105)
[2019-04-18 14:00] VITALS: BP 140/62; PULSE 70; RESP 18; TEMP 36.5; O2SAT 100
[2019-04-18 14:55] LABS: Glucose Point of Care 61 (65-105)
--- NOTE | 2019-04-18 15:39 | PC.NURSE ---
pt blood sugar was 60 and his meter after snack was 102.
[2019-04-18 17:58] LABS: Glucose Point of Care 183 (65-105)
--- NOTE | 2019-04-18 19:58 | PC.NURSE ---
pts left stump dressing changed this evening around 1829. Sutures intact -cleansed with NS, super sponges to protect and anthony wrapped.
[2019-04-18 21:05] LABS: Glucose Point of Care 166 (65-105)
[2019-04-18 21:21] VITALS: BP 121/47; PULSE 74; RESP 20; TEMP 36.6; O2SAT 99
[2019-04-19 06:00] VITALS: BP 130/57; PULSE 61; RESP 16; TEMP 36.2; O2SAT 99
[2019-04-19] MEDS: methylPREDNISolone (MEDROL) DOSEPACK 4 MG TABLETS PO (06:17)
[2019-04-19 07:24] LABS: Glucose Point of Care 124 (65-105)
[2019-04-19] MEDS: ACIDOPHILUS/BULGARICUS CHEWABLE TABLET 1 TABLET PO (10:37)
[2019-04-19] MEDS: metFORMIN HCL 500 MG TABLET 1000 MG PO (10:37)
[2019-04-19] MEDS: BENZONATATE 100 MG CAPSULE PO (10:38)
[2019-04-19] MEDS: ENOXAPARIN 40 MG/0.4 ML SYRINGE SUB-Q ×2 (10:38→23:04)
[2019-04-19] MEDS: CLOPIDOGREL BISULFATE 75 MG TABLET PO (10:38)
[2019-04-19] MEDS: DIPHENHYDRAMINE 1%/ZINC 0.1% CREAM 30 GM TUBE 1 APPLIC TOPICAL ×3 (10:38→18:11)
[2019-04-19] MEDS: EUCERIN CREAM 120 GM JAR 1 APPLIC TOPICAL (10:39)
[2019-04-19] MEDS: GABAPENTIN 100 MG CAPSULE PO ×3 (10:39→18:12)
[2019-04-19] MEDS: lisinopriL 10 MG TABLET PO (10:39)
[2019-04-19 12:37] LABS: Glucose Point of Care 167 (65-105)
--- NOTE | 2019-04-19 12:49 | PCOTNOTE ---
It is recommended that this patient, Ritesh Dee, have a bariatric shower bench for home use. This patient is at a high risk for falls secondary to left below-knee amputation and non-weightbearing on the left lower extremity. The patient also has further impairments of pain and decreased balance due to left below-knee amputation. A bariatric shower bench is recommended for home use in order to provide optimal safety and independence during bathing tasks. I agree with and certify that the above recommendation is medically necessary. Referring Physician Date
[2019-04-19] MEDS: LOPERAMIDE HCL 2 MG CAPSULE PO (13:07)
--- NOTE | 2019-04-19 13:21 | PCDIET ---
Nutrition Follow-Up Complete: Inconsistent carbohydrate intake related to T2DM dx as evidenced by patient's home meal reports (eating 2 meals and an occassional snack). Patient will consume greater than 75% of all meals and drink Narayan 1x/day Goal met. Pt eating 100% of all meals and drinking Narayan Nutrition recommendation: Continuation of DM CHO consistent diet to help pt meet nutritional needs and establish CHO consistency. Recommend addition of Banatrol TID temporarily, if medically appropriate, to help with present diarrhea. Last recorded weight is 156.4 kg. Bowel Motility:+BM 04/19 (x5). Experiencing diarrhea since Friday Labs Reviewed:POC Capillary Glu (124) Meds Noted:Protonix, oxycodone, prednizone, loperamide, lactinex, rocephin Additional Notes: Pt states appetite has been good. Has been experiencing diarrhea since Friday; related meds noted above. Has been eating HS snack past several days which has helped with overnight glucose levels. Will monitor labs and intake. Will follow up in 7 days.
[2019-04-19 14:00] VITALS: BP 157/53; PULSE 81; RESP 20; TEMP 36.1; O2SAT 99
--- NOTE | 2019-04-19 14:47 | PCNSR ---
On 04/19/19, the student, Dana Rosenbaum, provided care and completed [facility] documentation on this patient. I have reviewed the student's documentation and agree with the findings.
[2019-04-19 18:56] LABS: Glucose Point of Care 143 (65-105)
--- NOTE | 2019-04-19 20:40 | PC.NURSE ---
stump cleansed with NS, super sponges applied and anthony wrapped. Picc line dressing changed.
[2019-04-19 20:43] LABS: Glucose Point of Care 99 (65-105)
[2019-04-19 22:00] VITALS: BP 137/83; PULSE 67; RESP 20; TEMP 36.2; O2SAT 100
[2019-04-20 06:00] VITALS: BP 161/64; PULSE 68; RESP 20; TEMP 35.9; O2SAT 100
[2019-04-20 07:03] LABS: Glucose Point of Care 59 (65-105)
[2019-04-20 09:59] VITALS: BP 128/54; PULSE 71
[2019-04-20] MEDS: GABAPENTIN 100 MG CAPSULE PO ×3 (10:02→17:54)
[2019-04-20] MEDS: DIPHENHYDRAMINE 1%/ZINC 0.1% CREAM 30 GM TUBE 1 APPLIC TOPICAL ×3 (10:02→17:54)
[2019-04-20] MEDS: BENZONATATE 100 MG CAPSULE PO (10:02)
[2019-04-20] MEDS: metFORMIN HCL 500 MG TABLET 1000 MG PO (10:03)
[2019-04-20] MEDS: PANTOPRAZOLE 40 MG TABLET BY MOUTH (10:03)
[2019-04-20] MEDS: lisinopriL 10 MG TABLET PO (10:03)
[2019-04-20] MEDS: ENOXAPARIN 40 MG/0.4 ML SYRINGE SUB-Q ×2 (10:03→20:40)
[2019-04-20] MEDS: ACIDOPHILUS/BULGARICUS CHEWABLE TABLET 1 TABLET PO (10:03)
[2019-04-20] MEDS: CLOPIDOGREL BISULFATE 75 MG TABLET PO (10:04)
[2019-04-20] MEDS: NAPROXEN 500 MG TABLET BY MOUTH (10:04)
[2019-04-20] MEDS: EUCERIN CREAM 120 GM JAR 1 APPLIC TOPICAL (10:10)
[2019-04-20 12:19] LABS: Glucose Point of Care 95 (65-105)
--- NOTE | 2019-04-20 13:24 | WPDNEURORHBP ---
Subjective Date/time seen: 04/20/19 13:24 Interval history: this 64-year-old gentleman is here after having had left the BKA due to nonhealing wound he is a diabetic and has insulin pump which is being regulated by his plant controls specialist he will need stump protector and we are in process of getting more after getting the clearance from the surgeon patient will also have a follow-up with the Infectious Disease to whom he needs to call His rash is much better and will planning to discontinue ceftriaxone which possibly could be responsible for the rash she has had however is not getting any worse and in fact is getting better and he does not have any other signs of significant allergic reaction to ceftriaxone Review of Systems Review of Systems: All systems reviewed & are unremarkable except as noted in HPI and below Functional Status Ambulation Ability Ability to Ambulate 10 Feet: Contact Guard Ability to Ambulate 50 Feet With 2 Turns: Moderate Assistance X 1 Ambulation Assistive Devices: Walker, Standard Transfers Ability Ability to Transfer In/Out of Chair: Maximum Assistance X 1 Exam Const: General: comfortable and no acute distress HENMT: General nose exam: Normal nares present Mouth: Yes moist mucous membranes Eyes: General: appearance normal, both eyes and all related structures Neck: Neck: supple and no JVD Resp: Effort & Inspection: normal respiratory effort Auscultation: clear to auscultation bilaterally Cardio: Rate: regular rate Rhythm: regular rhythm GI: GI Palp: Yes Soft to palpation Auscultation: normal bowel sounds Skin: General skin exam: normal color and no rashes or lesions noted Other: patient's rash is getting better Neuro: Other: mental status is normal cranial examination is normal apart from showing evidence of diabetic retinopathy upper extremity strength is much better likewise lower extremities much med better and course he is handicapped by the left BKA Extrem: Other: left BKA clean Psych: Mental Status: mental status grossly normal Objective Data Vital Signs Vital Signs: Vital Signs - 24 hr 04/19/19 14:00 04/19/19 22:00 04/20/19 06:00 Temperature 36.1 C L 36.2 C L 35.9 C L Pulse Rate 81 67 68 Respiratory Rate 20 20 20 Blood Pressure 157/53 H 137/83 161/64 H Pulse Oximetry 99 100 100 04/20/19 09:59 Temperature Pulse Rate 71 Respiratory Rate Blood Pressure 128/54 L Pulse Oximetry Intake/Output Intake/Output: Intake & Output 04/17/19 04/18/19 04/19/19 04/20/19 23:59 23:59 23:59 23:59 Intake Total 1490 1490 1250 120 Balance 1490 1490 1250 120 Meds/Results Medications: Active Medications Generic Name Dose Route Start Last Admin Trade Name Freq PRN Reason Stop Dose Admin Albuterol 2.5 mg 04/01/19 23:45 Albuterol Sulf Neb 2.5mg/0.5ml INHALATION Q4HRT PRN Shortness Of Breath Alteplase, Recombinant 2 mg 04/04/19 13:46 04/04/19 15:23 Cathflo Activase IV PUSH 2 mg ONCE PRN Administration Line Occlusion Alteplase, Recombinant 2 mg 04/04/19 13:49 04/04/19 17:09 Cathflo Activase IV PUSH 2 mg ONCE PRN Administration Line Occlusion Benzonatate 100 mg 04/01/19 23:13 04/20/19 10:02 Tessalon Perles PO 100 mg TID PRN Administration Cough Bisacodyl 10 mg 04/04/19 14:14 Dulcolax Suppository RECTAL DAILY PRN Constipation Bisacodyl 10 mg 04/04/19 14:46 04/06/19 21:10 Dulcolax Tab PO 10 mg DAILY PRN Administration Constipation Clopidogrel Bisulfate 75 mg 04/02/19 09:00 04/20/19 10:04 Plavix PO 75 mg DAILY JOSE A Administration Dextrose 12.5 gm 04/16/19 13:48 04/16/19 17:59 Dextrose 50% Syringe IV PUSH 12.5 gm PRN PRN Administration Hypoglycemia Protocol Diphenhydramine HCl 25 mg 04/01/19 23:13 Benadryl Cap PO HS PRN Insomnia Enoxaparin Sodium 40 mg 04/01/19 23:55 04/20/19 10:03 Lovenox SUB-Q 40 mg Q12HR JOSE A Admini
[2019-04-20 14:00] VITALS: BP 119/43; PULSE 67; RESP 18; TEMP 36.1; O2SAT 100
[2019-04-20 17:27] LABS: Glucose Point of Care 136 (65-105)
[2019-04-20 20:18] LABS: Glucose Point of Care 181 (65-105)
[2019-04-20 22:00] VITALS: BP 142/54; PULSE 72; RESP 20; TEMP 36.1; O2SAT 100
[2019-04-20 23:40] VITALS: PULSE 72; O2SAT 99
[2019-04-21 06:00] VITALS: BP 154/55; RESP 18; TEMP 35.9; O2SAT 98
[2019-04-21 06:57] LABS: Glucose Point of Care 106 (65-105)
[2019-04-21] MEDS: ENOXAPARIN 40 MG/0.4 ML SYRINGE SUB-Q ×2 (08:39→20:16)
[2019-04-21] MEDS: metFORMIN HCL 500 MG TABLET 1000 MG PO (08:39)
[2019-04-21] MEDS: CLOPIDOGREL BISULFATE 75 MG TABLET PO (08:39)
[2019-04-21] MEDS: DIPHENHYDRAMINE 1%/ZINC 0.1% CREAM 30 GM TUBE 1 APPLIC TOPICAL ×3 (08:39→18:13)
[2019-04-21] MEDS: ACIDOPHILUS/BULGARICUS CHEWABLE TABLET 1 TABLET PO (08:39)
[2019-04-21] MEDS: EUCERIN CREAM 120 GM JAR 1 APPLIC TOPICAL (08:40)
[2019-04-21] MEDS: lisinopriL 10 MG TABLET PO (08:40)
[2019-04-21] MEDS: NAPROXEN 500 MG TABLET BY MOUTH (08:40)
[2019-04-21] MEDS: PANTOPRAZOLE 40 MG TABLET BY MOUTH (08:40)
[2019-04-21] MEDS: GABAPENTIN 100 MG CAPSULE PO ×3 (08:40→18:13)
[2019-04-21 11:55] LABS: Glucose Point of Care 140 (65-105)
[2019-04-21 14:00] VITALS: BP 123/67; PULSE 74; RESP 18; TEMP 36.6; O2SAT 100
--- NOTE | 2019-04-21 14:37 | WPDNEURORHBP ---
Subjective Date/time seen: 04/21/19 14:37 Interval history: this 64-year-old diabetic gentleman is here after having had left [id number] amputation he is diabetic control at best is fair however denies any headache nausea vomiting chest pain shortness of breath fever chills sore throat we are in process of getting the stump protector free overall picture is of improved Review of Systems Review of Systems: All systems reviewed & are unremarkable except as noted in HPI and below Functional Status Ambulation Ability Ability to Ambulate 10 Feet: Contact Guard Ability to Ambulate 50 Feet With 2 Turns: Moderate Assistance X 1 Ambulation Assistive Devices: Walker, Standard Transfers Ability Ability to Transfer In/Out of Chair: Maximum Assistance X 1 Exam Const: General: comfortable and no acute distress HENMT: General nose exam: Normal nares present Mouth: Yes moist mucous membranes Eyes: General: appearance normal, both eyes and all related structures Neck: Neck: supple and no JVD Resp: Effort & Inspection: normal respiratory effort Auscultation: clear to auscultation bilaterally Cardio: Rate: regular rate Rhythm: regular rhythm GI: GI Palp: Yes Soft to palpation Auscultation: normal bowel sounds Skin: General skin exam: normal color and no rashes or lesions noted Neuro: Other: mental status is normal cranial nerve examination apart from showing diabetic retinopathy is fairly decent he does have evidence of peripheral neuropathy and peripheral vascular disease which is stable Extrem: Other: left BKA is stable Objective Data Vital Signs Vital Signs: Vital Signs - 24 hr 04/20/19 22:00 04/20/19 23:40 04/21/19 06:00 Temperature 36.1 C L 35.9 C L Pulse Rate 72 72 Respiratory Rate 20 18 Blood Pressure 142/54 H 154/55 H Pulse Oximetry 100 99 98 Intake/Output Intake/Output: Intake & Output 04/18/19 04/19/19 04/20/19 04/21/19 23:59 23:59 23:59 23:59 Intake Total 1490 1250 1250 720 Balance 1490 1250 1250 720 Meds/Results Medications: Active Medications Generic Name Dose Route Start Last Admin Trade Name Freq PRN Reason Stop Dose Admin Albuterol 2.5 mg 04/01/19 23:45 Albuterol Sulf Neb 2.5mg/0.5ml INHALATION Q4HRT PRN Shortness Of Breath Alteplase, Recombinant 2 mg 04/04/19 13:46 04/04/19 15:23 Cathflo Activase IV PUSH 2 mg ONCE PRN Administration Line Occlusion Alteplase, Recombinant 2 mg 04/04/19 13:49 04/04/19 17:09 Cathflo Activase IV PUSH 2 mg ONCE PRN Administration Line Occlusion Benzonatate 100 mg 04/01/19 23:13 04/20/19 10:02 Tessalon Perles PO 100 mg TID PRN Administration Cough Bisacodyl 10 mg 04/04/19 14:14 Dulcolax Suppository RECTAL DAILY PRN Constipation Bisacodyl 10 mg 04/04/19 14:46 04/06/19 21:10 Dulcolax Tab PO 10 mg DAILY PRN Administration Constipation Clopidogrel Bisulfate 75 mg 04/02/19 09:00 04/21/19 08:39 Plavix PO 75 mg DAILY JOSE A Administration Dextrose 12.5 gm 04/16/19 13:48 04/16/19 17:59 Dextrose 50% Syringe IV PUSH 12.5 gm PRN PRN Administration Hypoglycemia Protocol Diphenhydramine HCl 25 mg 04/01/19 23:13 Benadryl Cap PO HS PRN Insomnia Enoxaparin Sodium 40 mg 04/01/19 23:55 04/21/19 08:39 Lovenox SUB-Q 40 mg Q12HR JOSE A Administration Fluticasone Propionate 2 spray 04/06/19 10:57 Flonase 0.05% Nasal [place] NASAL DAILY PRN Nasal Congestion Gabapentin 100 mg 04/02/19 09:00 04/21/19 12:31 Neurontin PO 100 mg TID JOSE A Administration Glucagon 1 mg 04/16/19 13:48 Glucagon For Inj IM PRN PRN Hypoglycemia Protocol Glucose 15 gm 04/16/19 13:48 Glutose 15 PO PRN PRN Hypoglycemia Protocol Ceftriaxone Sodium/Dextrose 1 gm in 50 mls @ 100 mls/hr 04/03/19 09:00 04/21/19 09:45 Rocephin 1 Gm/D5w 50 Ml IVPB 100 mls/hr Q24H JOSE A
[2019-04-21 16:57] LABS: Glucose Point of Care 54 (65-105)
[2019-04-21 18:05] LABS: Glucose Point of Care 105 (65-105)
[2019-04-21 21:18] LABS: Glucose Point of Care 126 (65-105)
[2019-04-21 21:31] VITALS: BP 118/46; PULSE 69; RESP 20; TEMP 36.1; O2SAT 100
[2019-04-21 22:50] VITALS: PULSE 69; O2SAT 100
[2019-04-22 06:00] VITALS: BP 122/56; PULSE 65; RESP 20; TEMP 36.1; O2SAT 99
[2019-04-22 07:15] LABS: Glucose Point of Care 115 (65-105)
[2019-04-22 08:00] VITALS: PULSE 65; RESP 20; O2SAT 99
--- NOTE | 2019-04-22 08:20 | PCPTNOTE ---
Ritesh Dee was evaluated for a slide board on 04/22/2019 by this physical therapist reference library assistant. The slide board will resolve patient's mobility limitations and will be used for ADL's within the home. The patient can safely use the slide board. ?The slide board will resolve the patient?s mobility deficits, including decreased balance, limited weight bearing through left lower extremity and decreased strength. Patient will utilize slide board to transfer from wheelchair to car and car to wheelchair and wheelchair to bed and bed to wheelchair.
[2019-04-22] MEDS: lisinopriL 10 MG TABLET PO (08:58)
[2019-04-22] MEDS: CLOPIDOGREL BISULFATE 75 MG TABLET PO (08:58)
[2019-04-22] MEDS: NAPROXEN 500 MG TABLET BY MOUTH (08:58)
[2019-04-22] MEDS: ACIDOPHILUS/BULGARICUS CHEWABLE TABLET 1 TABLET PO (08:58)
[2019-04-22] MEDS: DIPHENHYDRAMINE 1%/ZINC 0.1% CREAM 30 GM TUBE 1 APPLIC TOPICAL ×2 (08:59→14:24)
[2019-04-22] MEDS: ENOXAPARIN 40 MG/0.4 ML SYRINGE SUB-Q (08:59)
[2019-04-22] MEDS: GABAPENTIN 100 MG CAPSULE PO ×2 (08:59→14:24)
[2019-04-22] MEDS: metFORMIN HCL 500 MG TABLET 1000 MG PO (08:59)
[2019-04-22] MEDS: EUCERIN CREAM 120 GM JAR 1 APPLIC TOPICAL (08:59)
[2019-04-22] MEDS: PANTOPRAZOLE 40 MG TABLET BY MOUTH (08:59)
[2019-04-22 11:45] LABS: Glucose Point of Care 71 (65-105)
--- NOTE | 2019-04-22 13:46 | PC.NURSE ---
Followed procedure for picc line removal and talked with Umm Kerr RN IV therapist and then removed PICC line per protocol with cannula intact. Patient tolerated procedure well. Gauze and occlusive dressing applied. will continue to monitor.
[2019-04-22] MEDS: NEOMYCIN/POLYMYXIN/BACITRACIN OINTMENT PACKET 1 PACKET TOPICAL (16:17)
--- NOTE | 2019-04-24 17:46 | DS_ITS ---
DATE OF DISCHARGE: 04/22/2019 DISCHARGE ACUTE REHAB DIAGNOSIS: 10/amputation of lower extremity, etiological diagnosis diabetic left nonhealing foot ulceration followed by [id number] amputation. DISCHARGE ACTIVE COMORBID CONDITIONS: 1. Hypertension. 2. Benign prostatic hypertrophy. 3. Coronary artery disease, history of stenting. 4. 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 5. Diabetes mellitus. 6. Hyperlipidemia. 7. Obstructive sleep apnea. 8. Osteoarthritis. 9. Neuropathy. REASON FOR ADMISSION: This 64-year-old right-handed male presented to [facility] on 03/16/2019 with a complaint of worsening infection in an ulcer on his left foot, which was present for about a month. The wound was cultured, debrided in the wound care office, but continued to get worse. He was admitted on 03/16/2019 with sepsis. He started on vancomycin, cefepime, and Flagyl. The culture grew enterococcus , enterobacter, and E coli. Antibiotic treatments were changed to clindamycin, ampicillin, and cefepime. He was taken to the OR on 03/18/2019 for further debridement and wound VAC. His white count was trending downward, but he continued to complain of pain and continued to have significant drainage from the wound. Then, he was transferred to [facility] in [place], [place] for the infectious disease and vascular surgeons consult. ALFONSO was abnormal on the left, was scheduled to have left [id number] amputation on March 26, 2019 with vascular surgeon. He was continued on IV Rocephin for 3 weeks as per the recommendation of Infectious Disease up until 04/22/2019, with a PICC line in place at the right upper extremity. Postoperatively, he complained of pain, noted to have edema, acute kidney injuries, required oral medication for the chronic pain, chronic edema, IV fluids and diuresis for the edema and his creatinine came down to 1.3. LEVEL OF FUNCTION AT THE TIME OF ADMISSION: At the time of admission here, level of function required setup for eating, supervision for oral hygiene. He was dependent for toileting, partial assistance for bathing, supervision for upper body dressing, substantial assistance for lower body dressing. He was dependent for footwear, supervision for rolling in bed, sit to lying, lying to sitting, substantial assistance for sit to stand, chair transfer, toilet transfer, car transfer. He was unable to walk 10 feet, 50 feet with 2 turns, obviously 150 feet he was unable to. He was unable to walk 10 feet on uneven surfaces, curb or step, 4 steps, 12 steps, picking up object. He required supervision for wheelchair for 50 and 150 feet. ANTICIPATORY REHAB GOALS: Were to make him independent in most of the modalities except partial assistance for walking 10 feet, walking 10 feet on uneven surfaces, curb or step, and making independent picking up object in the wheelchair for 50 and 150 feet. LEVEL OF FUNCTION AT THE TIME OF DISCHARGE: Luckily he became independent for most of the modalities, required only setup for sit to stand, walking 10 feet. He was unable to walk 50 feet with 2 turns, 150 feet. He required partial assistance for 10 feet on uneven surfaces, substantial assistance for curb or step. He was unable to take on uneven surfaces, 4 steps, 12 steps, required supervision for picking objects, but became independent for the wheelchair up to 150 feet. HOSPITAL COURSE: During the entire hospitalization, he was involved actively in the physical therapy and occupational therapy. No other consultants were involved. At the time of discharge, he was able to ambulate 10 feet with contact guard; 50 feet with 2 turns with moderate assistance of one using the standard walker. He was in and out of transfer chair, maximum assist of 1. General physical exa
== END 2019-04-22 15:10 | disposition home health service (06) | DRG 560 ==
PROVIDERS: Psychiatry & Neurology Neurology; Admitting Provider Psychiatry & Neurology Neurology; Visit Provider Psychiatry & Neurology Neurology
DX: Z47.81 Encounter for orthopedic aftercare following surgical amputation (principal); I69.351 Hemiplegia and hemiparesis following cerebral infarction affecting right dominant side; Z68.42 Body mass index [BMI] 45.0-49.9, adult; Z89.512 Acquired absence of left leg below knee; E11.42 Type 2 diabetes mellitus with diabetic polyneuropathy; E11.319 Type 2 diabetes mellitus with unspecified diabetic retinopathy without macular edema; E11.51 Type 2 diabetes mellitus with diabetic peripheral angiopathy without gangrene; E66.01 Morbid (severe) obesity due to excess calories; E78.5 Hyperlipidemia, unspecified; G54.6 Phantom limb syndrome with pain; G47.33 Obstructive sleep apnea (adult) (pediatric); I10 Essential (primary) hypertension; I25.10 Atherosclerotic heart disease of native coronary artery without angina pectoris; I87.2 Venous insufficiency (chronic) (peripheral); M19.90 Unspecified osteoarthritis, unspecified site; N40.0 Benign prostatic hyperplasia without lower urinary tract symptoms; R21 Rash and other nonspecific skin eruption; R60.9 Edema, unspecified; Z98.41 Cataract extraction status, right eye; Z98.42 Cataract extraction status, left eye; Z95.5 Presence of coronary angioplasty implant and graft; Z96.41 Presence of insulin pump (external) (internal); Z96.641 Presence of right artificial hip joint; Z96.1 Presence of intraocular lens; Z79.4 Long term (current) use of insulin
CPT/HCPCS: 36415; 80048; 83036; 85025; 87040; 87081; 87324; 87493; 97110; 97112; 97116; 97150; 97161; 97166; 97530; 97535; 97542; 97761; A9270; J0696; J1650; J2997